=== PATIENT | male | born 1955 | race Caucasian/White ===

== ENCOUNTER 2017-09-13 11:52 | Inpatient (IN) | payer OTHER ==
[2017-09-13] MEDS: IBUPROFEN 600 MG TAB PO (13:43)
[2017-09-13] MEDS: CEFEPIME 1GM/50 ML (PMX) 50 ML IVPB ×2 (13:44→21:55)
[2017-09-13 14:04] LABS: ADD MAN DIFF? NO
[2017-09-13] MEDS: ALBUTEROL 0.083% (NEB) 2.5 MG/3 ML AMP HHN ×2 (14:06→14:28)
[2017-09-13 14:07] LABS: WHITE BLOOD COUNT 6.9 10^3/ul (4.8-10.8)
[2017-09-13 14:07] LABS: BASOPHILS % 0.4 % (0.0-2.0); EOSINOPHILS # 0.1 10^3/ul (0.0-0.5); HEMATOCRIT 42.9 % (42.0-52.0); HEMOGLOBIN 13.7 g/dl (14.0-18.0); LYMPHOCYTES # 1.1 10^3/ul (0.8-2.9); MEAN CORPUSCULAR HGB CONC 31.9 g/dl (32.0-37.0); MEAN CORPUSCULAR VOLUME 87.6 fl (82.0-101.0); MEAN PLATELET VOLUME 9.8 fl (7.4-10.4); MONOCYTE # 0.7 10^3/ul (0.3-0.9); MONOCYTES % 9.5 % (0.0-11.0); NEUTROPHILS % 71.8 % (39.0-77.0); PLATELET COUNT 267 10^3/UL (140-415); RED CELL DISTRIBUTION WIDTH 14.1 % (11.5-14.5)
[2017-09-13] MEDS: VANCOMYCIN 1 GM (PMX) 250 ML IVPB (14:15)
[2017-09-13] MEDS: SOD CHLORIDE 0.45% 1,000 ML IV (14:16)
[2017-09-13] MEDS ORDERED: ACETAMINOPHEN 325 MG TAB PO (14:30)
[2017-09-13] MEDS ORDERED: NACL 0.9% 3 ML SYG IV (14:30)
[2017-09-13] MEDS ORDERED: ONDANSETRON 4 MG INJ IV (14:30)
[2017-09-13] MEDS ORDERED: BISACODYL (EC) 5 MG TAB PO (14:30)
[2017-09-13] MEDS ORDERED: VANCOMYCIN IV PER PHARMACY XX (14:30)
[2017-09-13] MEDS ORDERED: LORAZEPAM 0.5 MG TAB PO (14:30)
[2017-09-13 14:31] LABS: INR 1.04; PROTIME 13.7 Sec (11.9-14.9); PT RATIO 1.1
[2017-09-13 14:32] LABS: PARTIAL THROMBOPLASTIN TIME 37.2 Sec (25.0-35.0)
[2017-09-13 14:34] LABS: LACTIC ACID 2.4 mmol/L (0.5-2.0)
[2017-09-13 14:35] LABS: ALANINE AMINOTRANSFERASE 33 IU/L (13-69); ALBUMIN 3.4 g/dl (3.3-4.9); ALBUMIN/GLOBULIN RATIO 1.06; ALKALINE PHOSPHATASE 71 IU/L (42-121); ANION GAP 17 (8-16); ASPARTATE AMINO TRANSFERASE 24 IU/L (15-46); BILIRUBIN,INDIRECT 0.2 mg/dl (0-1.1); BILIRUBIN,TOTAL 0.2 mg/dl (0.2-1.3); BLOOD UREA NITROGEN 5 mg/dl (7-20); CALCIUM 8.6 mg/dl (8.4-10.2); CARBON DIOXIDE 28 mmol/L (21-31); CHLORIDE 99 mmol/L (97-110); CREATININE 0.77 mg/dl (0.61-1.24); GLUCOSE 150 mg/dl (70-220); LIPASE 85 U/L (23-300); POTASSIUM 3.6 mmol/L (3.5-5.1); SODIUM 140 mmol/L (135-144); TOTAL PROTEIN 6.6 g/dl (6.1-8.1)
[2017-09-13 14:47] LABS: TROPONIN-I < 0.012 ng/ml (0.00-0.12)
[2017-09-13] MEDS: SOD CHLORIDE 0.9% 1,000 ML IV ×2 (15:00→15:28)
[2017-09-13] MEDS: IOHEXOL 100 ML (15:22)
[2017-09-13] MEDS: SOD CHLORIDE 0.9% 100 ML (15:23)
[2017-09-13] MEDS: DIGOXIN 500 MCG INJ IV (15:27)
[2017-09-13] MEDS: METHYLPREDNISOLONE 125 MG INJ IV ×2 (15:27→18:00)
[2017-09-13 15:44] LABS: HAAIG REFLEX REFLEX FILED
[2017-09-13] MEDS ORDERED: HEPARIN 25000 UNITS/250 ML 250 ML IV (16:00)
[2017-09-13] MEDS ORDERED: HEPARIN 1000 UNITS/ML 10 ML INJ IV ×3 (16:00)
[2017-09-13 16:48] LABS: HEPATITIS B SURFACE ANTIGEN NEGATIVE (NEGATIVE)
[2017-09-13 16:56] LABS: LACTIC ACID 2.2 mmol/L (0.5-2.0)
[2017-09-13] MEDS: DILTIAZEM 25 MG INJ IV (17:05)
[2017-09-13 17:06] LABS: HEPATITIS B CORE ANTIBODY NEGATIVE (NEGATIVE); HEPATITIS C VIRAL ANTIBODY NEGATIVE (NEGATIVE)
[2017-09-13 17:11] LABS: HIV 1&2 ANTIBODY NEGATIVE (NEGATIVE)
[2017-09-13 17:37] LABS: B-TYPE NATRIURETIC PEPTIDE 2010 PG/ML (0-125)
[2017-09-13] MEDS ORDERED: LIDOCAINE 1% (MDV) 20 ML INJ (17:47)
[2017-09-13] MEDS ORDERED: IODIXANOL LOCM 100 ML BTL (17:47)
[2017-09-13] MEDS ORDERED: SOD CHLORIDE 0.9% 500 ML (17:47)
[2017-09-13] MEDS ORDERED: PIPER-TAZO 3.375 GM IV (PMX) 50 ML IVPB (18:00)
[2017-09-13 18:03] LABS: LACTIC ACID 2.9 mmol/L (0.5-2.0)
[2017-09-13] MEDS ORDERED: MIDAZOLAM 1 MG/ML 2 ML INJ ×2 (18:27→18:28)
[2017-09-13] MEDS ORDERED: PROPOFOL 20 ML (18:28)
[2017-09-13] MEDS ORDERED: FENTAnyl 50 MCG/ML VIAL (18:28)
[2017-09-13] MEDS ORDERED: METOPROLOL 5 MG INJ (18:37)
[2017-09-13] MEDS ORDERED: WATER STERILE FOR IV (18:40)
[2017-09-13] MEDS ORDERED: ALTEPLASE IV (18:40)
[2017-09-13] MEDS ORDERED: ONDANSETRON 4 MG INJ (19:36)
[2017-09-13] MEDS: ALTEPLASE IV (20:00)
[2017-09-13] MEDS: WATER STERILE FOR IV (20:00)
[2017-09-13] MEDS: MONTELUKAST 10 MG TAB PO (21:00)
[2017-09-13] MEDS: QUETIAPINE 25 MG TAB PO (21:00)
[2017-09-13] MEDS: metroNIDAZOLE 500 MG/NS (PMX) 100 ML IVPB (21:55)
[2017-09-13] MEDS: FUROSEMIDE 20 MG TAB PO (21:56)
[2017-09-14 00:10] LABS: AADO2 Arterial 69.9 mmHg (7.0-24.0); Allen Test ACCEPTAB; Arterial Base Excess -0.3 mmol/L (-3.0-3); Arterial COHb 0.4 % (0.0-3.0); Arterial Fraction of Oxyhgb 92.4 % (93.0-99.0); Arterial HCO3 29.9 mmol/L (22.0-26.0); Arterial MetHb 0.2 % (0.0-1.5); Arterial Total Hemglobin 14.7 g/dl (12.0-18.0); Arterial pCO2 76.6 mmhg (35-45); MODE NASAL CANNULA; Site Right Radial
[2017-09-14] MEDS: METHYLPREDNISOLONE 125 MG INJ IV ×4 (01:20→18:00)
[2017-09-14] MEDS: SOD CHLORIDE 0.45% 1,000 ML IV ×2 (01:58→18:52)
[2017-09-14] MEDS: VANCOMYCIN 1.75 GM in NS 500 ML IVPB ×2 (01:58→12:46)
[2017-09-14] MEDS: metroNIDAZOLE 500 MG/NS (PMX) 100 ML IVPB ×3 (05:27→21:48)
[2017-09-14] MEDS: FUROSEMIDE 20 MG TAB PO ×2 (05:27→18:00)
[2017-09-14 05:28] LABS: Allen Test ACCEPTAB; Arterial Base Excess 1.8 mmol/L (-3.0-3); Arterial Blood Gas Oxygen Sat 94.4 mmHG (95.0-98.0); Arterial COHb 0.4 % (0.0-3.0); Arterial Fraction of Oxyhgb 93.7 % (93.0-99.0); Arterial HCO3 29.6 mmol/L (22.0-26.0); Arterial MetHb 0.3 % (0.0-1.5); Arterial Total Hemglobin 14.7 g/dl (12.0-18.0); Arterial pCO2 59.7 mmhg (35-45); Blood Gas PS 15/5; MODE BIPAP - S/T; Site Right Radial
[2017-09-14 06:32] LABS: ADD MAN DIFF? NO
[2017-09-14 06:39] LABS: HEMATOCRIT 42.7 % (42.0-52.0); HEMOGLOBIN 13.3 g/dl (14.0-18.0); LYMPHOCYTES # 0.6 10^3/ul (0.8-2.9); LYMPHOCYTES % 10.4 % (15.0-51.0); MEAN CORPUSCULAR HEMOGLOBIN 28.2 pg (29.0-33.0); MEAN CORPUSCULAR HGB CONC 31.1 g/dl (32.0-37.0); MEAN CORPUSCULAR VOLUME 90.5 fl (82.0-101.0); MEAN PLATELET VOLUME 9.4 fl (7.4-10.4); MONOCYTE # 0.2 10^3/ul (0.3-0.9); MONOCYTES % 3.7 % (0.0-11.0); NEUTROPHIL # 5.1 10^3/ul (1.6-7.5); NEUTROPHILS % 85.7 % (39.0-77.0); PLATELET COUNT 223 10^3/UL (140-415); RED BLOOD COUNT 4.72 10^6/ul (4.70-6.10); RED CELL DISTRIBUTION WIDTH 14.1 % (11.5-14.5)
[2017-09-14 07:14] LABS: ALANINE AMINOTRANSFERASE 39 IU/L (13-69); ALBUMIN 3.2 g/dl (3.3-4.9); ALBUMIN/GLOBULIN RATIO 0.88; ALKALINE PHOSPHATASE 70 IU/L (42-121); ANION GAP 16 (8-16); ASPARTATE AMINO TRANSFERASE 23 IU/L (15-46); BLOOD UREA NITROGEN 9 mg/dl (7-20); CALCIUM 9.2 mg/dl (8.4-10.2); CARBON DIOXIDE 29 mmol/L (21-31); CHLORIDE 101 mmol/L (97-110); CHOL/HDL RATIO 3.8 RATIO; CHOLESTEROL 137 mg/dl (100-200); CREATININE 0.66 mg/dl (0.61-1.24); GLUCOSE 189 mg/dl (70-220); HDL CHOLESTEROL 36 mg/dl (30-78); LDL CHOLESTEROL,CALCULATED 85 mg/dl; MAGNESIUM 1.9 mg/dl (1.7-2.5); POTASSIUM 4.4 mmol/L (3.5-5.1); SODIUM 142 mmol/L (135-144); TOTAL PROTEIN 6.8 g/dl (6.1-8.1); TRIGLYCERIDES 79 mg/dl (0-149)
[2017-09-14] MEDS: ALTEPLASE IV ×2 (08:54→10:15)
[2017-09-14] MEDS: WATER STERILE FOR IV ×2 (08:54→10:15)
[2017-09-14] MEDS: CEFEPIME 1GM/50 ML (PMX) 50 ML IVPB ×2 (08:57→20:58)
[2017-09-14] MEDS ORDERED: IODIXANOL LOCM 100 ML BTL (14:50)
[2017-09-14] MEDS ORDERED: HEPARIN 1000 UNITS/NS (A-LINE) 1,000 ML (14:50)
[2017-09-14] MEDS ORDERED: LIDOCAINE 1% (MDV) 20 ML INJ (14:50)
[2017-09-14] MEDS ORDERED: MIDAZOLAM 1 MG/ML 2 ML INJ (15:14)
[2017-09-14] MEDS ORDERED: PROPOFOL 40 ML (15:25)
[2017-09-14] MEDS ORDERED: LIDOCAINE 2% (SDV) 5 ML INJ (15:25)
[2017-09-14] MEDS ORDERED: HEPARIN 1000 UNITS/ML 10 ML INJ (16:24)
[2017-09-14] MEDS ORDERED: HEPARIN 1000 UNITS/ML 10 ML INJ IV ×4 (17:00→17:30)
[2017-09-14] MEDS ORDERED: HEPARIN 25000 UNITS/250 ML 250 ML IV (17:30)
[2017-09-14] MEDS: HEPARIN 25000 UNITS/250 ML 250 ML IV (17:59)
[2017-09-14 18:35] LABS: ABNORMAL IP MESSAGE 1; HEMATOCRIT 43.9 % (42.0-52.0); HEMOGLOBIN 13.2 g/dl (14.0-18.0); MEAN CORPUSCULAR HEMOGLOBIN 27.7 pg (29.0-33.0); MEAN CORPUSCULAR HGB CONC 30.1 g/dl (32.0-37.0); MEAN PLATELET VOLUME 9.7 fl (7.4-10.4); PLATELET COUNT 218 10^3/UL (140-415); POSITIVE DIFF @See below; RED BLOOD COUNT 4.77 10^6/ul (4.70-6.10); RED CELL DISTRIBUTION WIDTH 13.9 % (11.5-14.5)
[2017-09-14 18:35] LABS: WHITE BLOOD COUNT 9.6 10^3/ul (4.8-10.8)
[2017-09-14 18:38] LABS: ADD MAN DIFF? YES
[2017-09-14 19:19] LABS: BAND NEUTROPHILS #M 0.2 10^3/ul (0.0-0.6); BAND NEUTROPHILS % (M) 3 % (0-4); GIANT THROMBO% (M) 1 % (0-0); LYMPHOCYTES #M 0.1 10^3/ul (0.8-2.9); LYMPHOCYTES % (M) 2 % (15-51); MONOCYTE #M 0.1 10^3/ul (0.3-0.9); MONOCYTES % (M) 2 % (0-11); PLATELET ESTIMATE NORMAL; SEG NEUT #M 8.9 10^3/ul (1.7-7.5); SEGMENTED NEUTROPHILS (M) % 93 % (39-77); SMUDGE%M 3 % (0-0)
[2017-09-14] MEDS: MONTELUKAST 10 MG TAB PO ×2 (20:59→21:16)
[2017-09-14] MEDS: QUETIAPINE 25 MG TAB PO (21:00)
[2017-09-14] MEDS: morphine 2 MG INJ IV (22:26)
[2017-09-14] MEDS: FUROSEMIDE 20 MG INJ IV (23:37)
[2017-09-15] MEDS: METHYLPREDNISOLONE 125 MG INJ IV ×5 (00:49→23:39)
[2017-09-15] MEDS ORDERED: LEVALBUTEROL (NEB) 0.63 MG/3 ML AMP (01:07)
[2017-09-15] MEDS ORDERED: IPRATROPIUM (NEB) 0.5 MG/2.5 ML AMP (01:07)
[2017-09-15] MEDS: IPRATROPIUM (NEB) 0.5 MG/2.5 ML AMP HHN ×5 (01:21→16:00)
[2017-09-15] MEDS: LEVALBUTEROL (NEB) 0.63 MG/3 ML AMP HHN ×5 (01:21→16:00)
[2017-09-15] MEDS: AMIODARONE 150MG/D5W BOLUS 100 ML IVPB (01:29)
[2017-09-15] MEDS: VANCOMYCIN 1.75 GM in NS 500 ML IVPB ×3 (01:30→21:30)
[2017-09-15] MEDS: AMIODARONE 900 MG in DEXTROSE 5% 482 ML IV ×2 (01:33→08:59)
[2017-09-15] MEDS: HYDROCODONE/APAP (5/325) TAB PO (02:32)
[2017-09-15 03:53] LABS: PARTIAL THROMBOPLASTIN TIME 73.3 Sec (25.0-35.0)
[2017-09-15] MEDS: metroNIDAZOLE 500 MG/NS (PMX) 100 ML IVPB ×3 (06:00→22:54)
[2017-09-15 06:04] LABS: ADD MAN DIFF? NO
[2017-09-15 06:13] LABS: WHITE BLOOD COUNT 11.2 10^3/ul (4.8-10.8)
[2017-09-15 06:13] LABS: ABNORMAL IP MESSAGE 1; BASOPHILS % 0.1 % (0.0-2.0); HEMATOCRIT 40.6 % (42.0-52.0); HEMOGLOBIN 12.9 g/dl (14.0-18.0); LYMPHOCYTES # 0.5 10^3/ul (0.8-2.9); LYMPHOCYTES % 4.6 % (15.0-51.0); MEAN CORPUSCULAR HEMOGLOBIN 28.6 pg (29.0-33.0); MEAN CORPUSCULAR HGB CONC 31.8 g/dl (32.0-37.0); MEAN PLATELET VOLUME 10.2 fl (7.4-10.4); MONOCYTE # 0.6 10^3/ul (0.3-0.9); MONOCYTES % 4.9 % (0.0-11.0); PLATELET COUNT 218 10^3/UL (140-415); POSITIVE DIFF @See below; RED BLOOD COUNT 4.51 10^6/ul (4.70-6.10); RED CELL DISTRIBUTION WIDTH 14.1 % (11.5-14.5)
[2017-09-15] MEDS: FUROSEMIDE 40 MG INJ IV ×2 (06:26→18:01)
[2017-09-15] MEDS: HEPARIN 25000 UNITS/250 ML 250 ML IV ×2 (06:29→17:23)
[2017-09-15 06:33] LABS: LACTIC ACID 1.6 mmol/L (0.5-2.0)
[2017-09-15 07:25] LABS: ANION GAP 14 (8-16); BLOOD UREA NITROGEN 10 mg/dl (7-20); CALCIUM 8.4 mg/dl (8.4-10.2); CARBON DIOXIDE 27 mmol/L (21-31); CHLORIDE 98 mmol/L (97-110); CREATININE 0.73 mg/dl (0.61-1.24); GLUCOSE 316 mg/dl (70-220); MAGNESIUM 1.6 mg/dl (1.7-2.5); PHOSPHORUS 3.4 mg/dl (2.5-4.9); POTASSIUM 4.5 mmol/L (3.5-5.1); SODIUM 134 mmol/L (135-144)
[2017-09-15] MEDS: CEFEPIME 1GM/50 ML (PMX) 50 ML IVPB ×2 (09:00→21:01)
[2017-09-15] MEDS: DIGOXIN 500 MCG INJ IV (09:03)
[2017-09-15] MEDS: DILTIAZEM 60 MG TAB PO ×3 (09:03→21:01)
[2017-09-15 09:07] LABS: BAND NEUTROPHILS #M 2.6 10^3/ul (0.0-0.6); BAND NEUTROPHILS % (M) 24 % (0-4); LYMPHOCYTES #M 0.4 10^3/ul (0.8-2.9); LYMPHOCYTES % (M) 4 % (15-51); MONOCYTE #M 0.3 10^3/ul (0.3-0.9); MONOCYTES % (M) 3 % (0-11); PLATELET ESTIMATE NORMAL; POLYCHROMASIA 1+ (0-0); SEGMENTED NEUTROPHILS (M) % 69 % (39-77); SMUDGE%M 8 % (0-0)
[2017-09-15] MEDS ORDERED: MAGNESIUM SULFATE 2 GM/50 ML 50 ML IVPB (09:30)
[2017-09-15] MEDS: LIDOCAINE 1% (MPF) 5 ML VIAL SC (10:30)
[2017-09-15] MEDS: MAGNESIUM OXIDE 400 MG TAB PO (11:48)
[2017-09-15] MEDS: morphine 2 MG INJ IV (12:32)
[2017-09-15 14:19] LABS: PARTIAL THROMBOPLASTIN TIME 70.6 Sec (25.0-35.0)
[2017-09-15 15:36] LABS: VANCOMYCIN,TROUGH 5.3 ug/ml (10.0-20.0)
[2017-09-15] MEDS: OXYCODONE/ACETAMINOPHEN (5/325) TAB PO ×2 (16:37)
[2017-09-15] MEDS: QUETIAPINE 25 MG TAB PO ×2 (21:02→21:04)
[2017-09-16] MEDS: morphine 2 MG INJ IV ×5 (00:05→20:11)
[2017-09-16] MEDS ORDERED: GLUCOSE GEL 15 GRAM TUBE PO ×2 (02:30)
[2017-09-16] MEDS ORDERED: GLUCOSE GEL 15 GRAM TUBE BUCCAL (02:30)
[2017-09-16] MEDS ORDERED: DEXTROSE 50% 50 ML SYRINGE IV ×2 (02:30)
[2017-09-16] MEDS ORDERED: GLUCAGON 1 MG INJ IM (02:30)
[2017-09-16] MEDS: VANCOMYCIN 1.75 GM in NS 500 ML IVPB ×3 (04:38→21:47)
[2017-09-16] MEDS: HEPARIN 25000 UNITS/250 ML 250 ML IV ×2 (04:50→19:10)
[2017-09-16 05:17] LABS: ADD MAN DIFF? NO
[2017-09-16 05:25] LABS: ABNORMAL IP MESSAGE 1; BASOPHILS % 0.1 % (0.0-2.0); HEMATOCRIT 40.7 % (42.0-52.0); HEMOGLOBIN 12.8 g/dl (14.0-18.0); LYMPHOCYTES # 0.5 10^3/ul (0.8-2.9); LYMPHOCYTES % 5.2 % (15.0-51.0); MEAN CORPUSCULAR HEMOGLOBIN 28.2 pg (29.0-33.0); MEAN CORPUSCULAR HGB CONC 31.4 g/dl (32.0-37.0); MEAN CORPUSCULAR VOLUME 89.6 fl (82.0-101.0); MEAN PLATELET VOLUME 9.6 fl (7.4-10.4); MONOCYTE # 0.3 10^3/ul (0.3-0.9); MONOCYTES % 3.1 % (0.0-11.0); NEUTROPHILS % 91.1 % (39.0-77.0); PLATELET COUNT 244 10^3/UL (140-415); POSITIVE DIFF @See below; RED BLOOD COUNT 4.54 10^6/ul (4.70-6.10); RED CELL DISTRIBUTION WIDTH 14.3 % (11.5-14.5)
[2017-09-16 05:25] LABS: WHITE BLOOD COUNT 9.9 10^3/ul (4.8-10.8)
[2017-09-16] MEDS: METHYLPREDNISOLONE 125 MG INJ IV ×4 (05:45→23:12)
[2017-09-16] MEDS: FUROSEMIDE 40 MG INJ IV ×2 (05:45→17:39)
[2017-09-16] MEDS: metroNIDAZOLE 500 MG/NS (PMX) 100 ML IVPB ×3 (05:45→21:10)
[2017-09-16] MEDS: INSULIN ASPART [NOVOLOG] 3 ML PEN SC ×4 (05:51→20:29)
[2017-09-16 06:14] LABS: B-TYPE NATRIURETIC PEPTIDE 963 PG/ML (0-125)
[2017-09-16 06:17] LABS: ALANINE AMINOTRANSFERASE 38 IU/L (13-69); ALBUMIN 3.3 g/dl (3.3-4.9); ALKALINE PHOSPHATASE 72 IU/L (42-121); ANION GAP 16 (8-16); ASPARTATE AMINO TRANSFERASE 18 IU/L (15-46); BLOOD UREA NITROGEN 16 mg/dl (7-20); CALCIUM 8.8 mg/dl (8.4-10.2); CARBON DIOXIDE 30 mmol/L (21-31); CHLORIDE 99 mmol/L (97-110); CREATININE 0.66 mg/dl (0.61-1.24); GLUCOSE 186 mg/dl (70-220); MAGNESIUM 2.1 mg/dl (1.7-2.5); POTASSIUM 4.5 mmol/L (3.5-5.1); SODIUM 140 mmol/L (135-144); TOTAL PROTEIN 6.3 g/dl (6.1-8.1)
[2017-09-16 06:21] LABS: ANION GAP 15 (8-16); BLOOD UREA NITROGEN 16 mg/dl (7-20); CALCIUM 8.9 mg/dl (8.4-10.2); CARBON DIOXIDE 32 mmol/L (21-31); CHLORIDE 98 mmol/L (97-110); CREATININE 0.67 mg/dl (0.61-1.24); GLUCOSE 185 mg/dl (70-220); PHOSPHORUS 3.9 mg/dl (2.5-4.9); POTASSIUM 4.5 mmol/L (3.5-5.1); SODIUM 140 mmol/L (135-144)
[2017-09-16 06:26] LABS: PARTIAL THROMBOPLASTIN TIME 75.9 Sec (25.0-35.0)
[2017-09-16] MEDS: DILTIAZEM 60 MG TAB PO ×3 (09:36→20:13)
[2017-09-16] MEDS: CEFEPIME 1GM/50 ML (PMX) 50 ML IVPB ×2 (09:37→20:11)
[2017-09-16] MEDS: DIGOXIN 0.125 MG TAB PO (12:11)
[2017-09-16] MEDS: IPRATROPIUM (NEB) 0.5 MG/2.5 ML AMP HHN ×2 (12:38→18:27)
[2017-09-16] MEDS: LEVALBUTEROL (NEB) 0.63 MG/3 ML AMP HHN ×3 (12:38→23:41)
[2017-09-16] MEDS ORDERED: LORAZEPAM 1 MG TAB PO (14:30)
[2017-09-16 15:01] LABS: FREE T4 (FREE THYROXINE) 1.15 ng/dl (0.78-2.44)
[2017-09-16 15:15] LABS: THYROID STIMULATING HORMONE 0.358 MIU/L (0.465-4.680)
[2017-09-16] MEDS: QUETIAPINE 25 MG TAB PO (20:12)
[2017-09-16] MEDS: MONTELUKAST 10 MG TAB PO (20:13)
[2017-09-16] MEDS ORDERED: ENOXAPARIN 100 MG/ML SYG SC (21:00)
[2017-09-17] MEDS ORDERED: ACCU-CHEK XX (02:00)
[2017-09-17] MEDS: metroNIDAZOLE 500 MG/NS (PMX) 100 ML IVPB ×3 (05:00→21:32)
[2017-09-17] MEDS: METHYLPREDNISOLONE 125 MG INJ IV (05:40)
[2017-09-17] MEDS: VANCOMYCIN 1.75 GM in NS 500 ML IVPB (05:40)
[2017-09-17] MEDS: FUROSEMIDE 40 MG INJ IV ×2 (05:46→17:23)
[2017-09-17] MEDS: morphine 2 MG INJ IV ×2 (06:02→20:57)
[2017-09-17 06:31] LABS: ADD MAN DIFF? NO
[2017-09-17 06:38] LABS: WHITE BLOOD COUNT 9.7 10^3/ul (4.8-10.8)
[2017-09-17 06:38] LABS: ABNORMAL IP MESSAGE 1; BASOPHILS % 0.2 % (0.0-2.0); HEMOGLOBIN 13.4 g/dl (14.0-18.0); LYMPHOCYTES # 0.6 10^3/ul (0.8-2.9); LYMPHOCYTES % 5.7 % (15.0-51.0); MEAN CORPUSCULAR HEMOGLOBIN 27.7 pg (29.0-33.0); MEAN CORPUSCULAR HGB CONC 31.2 g/dl (32.0-37.0); MEAN PLATELET VOLUME 9.2 fl (7.4-10.4); MONOCYTE # 0.3 10^3/ul (0.3-0.9); MONOCYTES % 3.5 % (0.0-11.0); NEUTROPHIL # 8.7 10^3/ul (1.6-7.5); NEUTROPHILS % 89.4 % (39.0-77.0); PLATELET COUNT 274 10^3/UL (140-415); POSITIVE DIFF @See below; RED BLOOD COUNT 4.83 10^6/ul (4.70-6.10); RED CELL DISTRIBUTION WIDTH 13.7 % (11.5-14.5)
[2017-09-17 07:05] LABS: PARTIAL THROMBOPLASTIN TIME 62.6 Sec (25.0-35.0)
[2017-09-17 07:05] LABS: ANION GAP 14 (8-16); BLOOD UREA NITROGEN 23 mg/dl (7-20); CARBON DIOXIDE 35 mmol/L (21-31); CHLORIDE 94 mmol/L (97-110); CREATININE 0.73 mg/dl (0.61-1.24); GLUCOSE 216 mg/dl (70-220); PHOSPHORUS 3.6 mg/dl (2.5-4.9); POTASSIUM 4.2 mmol/L (3.5-5.1); SODIUM 139 mmol/L (135-144)
[2017-09-17] MEDS: INSULIN ASPART [NOVOLOG] 3 ML PEN SC ×5 (08:29→21:30)
[2017-09-17] MEDS: HEPARIN 25000 UNITS/250 ML 250 ML IV ×2 (08:39→19:29)
[2017-09-17] MEDS: DILTIAZEM 60 MG TAB PO ×2 (09:13→12:18)
[2017-09-17] MEDS: CEFEPIME 1GM/50 ML (PMX) 50 ML IVPB ×2 (10:17→22:56)
[2017-09-17] MEDS: DIGOXIN 0.125 MG TAB PO (12:18)
[2017-09-17 13:18] LABS: VANCOMYCIN,TROUGH 22.7 ug/ml (10.0-20.0)
[2017-09-17 15:16] LABS: PARTIAL THROMBOPLASTIN TIME 78.4 Sec (25.0-35.0)
[2017-09-17] MEDS: LEVALBUTEROL (NEB) 0.63 MG/3 ML AMP HHN ×2 (16:45→23:52)
[2017-09-17] MEDS: IPRATROPIUM (NEB) 0.5 MG/2.5 ML AMP HHN (16:45)
[2017-09-17] MEDS: MONTELUKAST 10 MG TAB PO (20:42)
[2017-09-17] MEDS: DILTIAZEM (CD) 120 MG CAP PO (20:42)
[2017-09-17] MEDS: QUETIAPINE 25 MG TAB PO (20:50)
[2017-09-17] MEDS: VANCOMYCIN 1 GM (PMX) 250 ML IVPB (21:31)
[2017-09-18 00:02] LABS: PARTIAL THROMBOPLASTIN TIME 126.6 Sec (25.0-35.0)
[2017-09-18] MEDS: HEPARIN 25000 UNITS/250 ML 250 ML IV ×2 (00:53→09:20)
[2017-09-18] MEDS: metroNIDAZOLE 500 MG/NS (PMX) 100 ML IVPB (05:21)
[2017-09-18] MEDS: FUROSEMIDE 40 MG INJ IV (05:22)
[2017-09-18] MEDS: morphine 2 MG INJ IV (05:27)
[2017-09-18 06:54] LABS: ADD MAN DIFF? NO
[2017-09-18 07:02] LABS: WHITE BLOOD COUNT 11.4 10^3/ul (4.8-10.8)
[2017-09-18 07:02] LABS: BASOPHIL # 0.1 10^3/ul (0.0-0.1); BASOPHILS % 0.4 % (0.0-2.0); HEMATOCRIT 44.6 % (42.0-52.0); LYMPHOCYTES # 0.7 10^3/ul (0.8-2.9); LYMPHOCYTES % 6.4 % (15.0-51.0); MEAN CORPUSCULAR HEMOGLOBIN 27.8 pg (29.0-33.0); MEAN CORPUSCULAR HGB CONC 31.4 g/dl (32.0-37.0); MEAN CORPUSCULAR VOLUME 88.7 fl (82.0-101.0); MEAN PLATELET VOLUME 9.9 fl (7.4-10.4); MONOCYTE # 0.7 10^3/ul (0.3-0.9); MONOCYTES % 5.9 % (0.0-11.0); NEUTROPHIL # 9.5 10^3/ul (1.6-7.5); NEUTROPHILS % 83.4 % (39.0-77.0); PLATELET COUNT 274 10^3/UL (140-415); RED BLOOD COUNT 5.03 10^6/ul (4.70-6.10); RED CELL DISTRIBUTION WIDTH 13.5 % (11.5-14.5)
[2017-09-18 07:22] LABS: PARTIAL THROMBOPLASTIN TIME 45.1 Sec (25.0-35.0)
[2017-09-18 07:36] LABS: ANION GAP 13 (8-16); BLOOD UREA NITROGEN 25 mg/dl (7-20); CALCIUM 8.6 mg/dl (8.4-10.2); CARBON DIOXIDE 36 mmol/L (21-31); CHLORIDE 94 mmol/L (97-110); CREATININE 0.71 mg/dl (0.61-1.24); GLUCOSE 184 mg/dl (70-220); PHOSPHORUS 3.5 mg/dl (2.5-4.9); POTASSIUM 4.3 mmol/L (3.5-5.1); SODIUM 139 mmol/L (135-144)
[2017-09-18] MEDS: INSULIN ASPART [NOVOLOG] 3 ML PEN SC (07:48)
[2017-09-18] MEDS: CEFEPIME 1GM/50 ML (PMX) 50 ML IVPB (09:16)
[2017-09-18] MEDS: DILTIAZEM (CD) 120 MG CAP PO (09:17)
[2017-09-18] MEDS: HEPARIN 1000 UNITS/ML 10 ML INJ IV (09:18)
[2017-09-18] MEDS: predniSONE 20 MG TAB PO (09:43)
[2017-09-18] MEDS: VANCOMYCIN 1 GM (PMX) 250 ML IVPB (10:00)
[2017-09-18] MEDS: APIXABAN 5 MG TABLET PO (11:16)
[2017-09-18] MEDS ORDERED: INSULIN GLARGINE [LANtus] 3 ML PEN SC (20:00)
== END 2017-09-18 11:19 | disposition left against medical advice (07) | DRG 853 ==
LOC: E/R 11:52 → ICU 18:01 → TEL 09-16 16:23 → ICU 20:32 → E/R 16:05 → ICU 16:05
PROVIDERS: Internal Medicine
PROC: 02CQ3ZZ Extirpation of Matter from Right Pulmonary Artery, Percutaneous Approach (ICD-10-PCS; principal; 2017-09-13 18:08)
PROC: 3E06317 Introduction of Other Thrombolytic into Central Artery, Percutaneous Approach (ICD-10-PCS; 2017-09-13 18:08)
DX: A41.9 Sepsis, unspecified organism (principal); J18.9 Pneumonia, unspecified organism; I26.99 Other pulmonary embolism without acute cor pulmonale; J96.91 Respiratory failure, unspecified with hypoxia; I74.2 Embolism and thrombosis of arteries of the upper extremities; I48.91 Unspecified atrial fibrillation; J44.1 Chronic obstructive pulmonary disease with (acute) exacerbation; Z68.43 Body mass index [BMI] 50.0-59.9, adult; J44.0 Chronic obstructive pulmonary disease with (acute) lower respiratory infection; R04.2 Hemoptysis; Z59.0 Homelessness; E66.01 Morbid (severe) obesity due to excess calories; Z72.0 Tobacco use
CPT/HCPCS: 36415; 36600; 37211; 71045; 71275; 80048; 80053; 80061; 80202; 81240; 82803; 82962; 83090; 83605; 83690; 83735; 83880; 83890; 84100; 84439; 84443; 84484; 85025; 85240; 85300; 85302; 85305; 85384; 85610; 85613; 85730; 86147; 86703; 86704; 86709; 86803; 87040; 87081; 87086; 87340; 87400; 93005; 93306; 93970; 94640; 94660; 94664; 96374; 96375; 97166; 97535; 99291-25

== ENCOUNTER 2017-10-24 14:04 | Inpatient (IN) | payer OTHER ==
[2017-10-24 14:59] LABS: ADD MAN DIFF? NO
[2017-10-24] MEDS: FUROSEMIDE 40 MG INJ IV (15:00)
[2017-10-24] MEDS: DILTIAZEM 25 MG INJ IV (15:01)
[2017-10-24] MEDS: ASPIRIN 81 MG TAB PO (15:01)
[2017-10-24 15:03] LABS: BASOPHILS % 0.4 % (0.0-2.0); EOSINOPHILS # 0.1 10^3/ul (0.0-0.5); EOSINOPHILS % 0.9 % (0.0-7.0); HEMATOCRIT 40.4 % (42.0-52.0); HEMOGLOBIN 12.2 g/dl (14.0-18.0); LYMPHOCYTES # 1.2 10^3/ul (0.8-2.9); LYMPHOCYTES % 15.3 % (15.0-51.0); MEAN CORPUSCULAR HEMOGLOBIN 27.7 pg (29.0-33.0); MEAN CORPUSCULAR HGB CONC 30.2 g/dl (32.0-37.0); MEAN CORPUSCULAR VOLUME 91.8 fl (82.0-101.0); MEAN PLATELET VOLUME 9.2 fl (7.4-10.4); MONOCYTE # 0.6 10^3/ul (0.3-0.9); MONOCYTES % 7.2 % (0.0-11.0); NEUTROPHILS % 75.8 % (39.0-77.0); PLATELET COUNT 287 10^3/UL (140-415); RED CELL DISTRIBUTION WIDTH 15.9 % (11.5-14.5)
[2017-10-24 15:03] LABS: WHITE BLOOD COUNT 7.9 10^3/ul (4.8-10.8)
[2017-10-24 15:18] LABS: INR 1.07; PT RATIO 1.1
[2017-10-24 15:19] LABS: PARTIAL THROMBOPLASTIN TIME 34.6 Sec (25.0-35.0)
[2017-10-24 15:21] LABS: ANION GAP 12 (8-16); BLOOD UREA NITROGEN 10 mg/dl (7-20); CARBON DIOXIDE 35 mmol/L (21-31); CHLORIDE 99 mmol/L (97-110); CREATININE 0.85 mg/dl (0.61-1.24); GLUCOSE 167 mg/dl (70-220); POTASSIUM 3.7 mmol/L (3.5-5.1); SODIUM 142 mmol/L (135-144)
[2017-10-24] MEDS: DILTIAZEM 30 MG TAB PO (15:29)
[2017-10-24 15:40] LABS: TROPONIN-I < 0.012 ng/ml (0.00-0.12)
[2017-10-24] MEDS ORDERED: ONDANSETRON 4 MG INJ IV (16:30)
[2017-10-24] MEDS ORDERED: ACETAMINOPHEN 325 MG TAB PO (16:30)
[2017-10-24] MEDS: NITROGLYCERIN 2% 1 GM OINT PKT TD (18:55)
[2017-10-24] MEDS ORDERED: NITROGLYCERIN (SL) 0.4 MG TAB SL (19:00)
[2017-10-24] MEDS: ALBUTEROL 0.083% (NEB) 2.5 MG/3 ML AMP HHN (19:13)
[2017-10-24] MEDS: IPRATROPIUM (NEB) 0.5 MG/2.5 ML AMP HHN (19:14)
[2017-10-24 19:21] LABS: AADO2 Arterial 260.1 mmHg (7.0-24.0); Allen Test ACCEPTAB; Arterial Blood Gas Oxygen Sat 97.1 mmHG (95.0-98.0); Arterial COHb 2.6 % (0.0-3.0); Arterial Fraction of Oxyhgb 94.3 % (93.0-99.0); Arterial HCO3 37.5 mmol/L (22.0-26.0); Arterial MetHb 0.3 % (0.0-1.5); Arterial Total Hemglobin 13.4 g/dl (12.0-18.0); Arterial pCO2 71.5 mmhg (35-45); MODE MASK - SIMPLE; Site Left Radial
[2017-10-24] MEDS ORDERED: NACL 0.9% 3 ML SYG IV (20:00)
[2017-10-24] MEDS ORDERED: BISACODYL (EC) 5 MG TAB PO (20:00)
[2017-10-24] MEDS ORDERED: ONDANSETRON 4 MG TAB PO (20:00)
[2017-10-24] MEDS ORDERED: DOCUSATE SODIUM 100 MG CAP PO (20:00)
[2017-10-24] MEDS: APIXABAN 5 MG TABLET PO (20:45)
[2017-10-24] MEDS: POTASSIUM CHLORIDE (SR) 20 MEQ TAB PO (20:46)
[2017-10-24] MEDS: morphine 2 MG INJ IV (20:55)
[2017-10-24 22:01] LABS: CREATINE KINASE < 20 IU/L (23-200)
[2017-10-24 22:08] LABS: CK-MB < 0.22 ng/ml (0.0-2.4); TROPONIN-I < 0.012 ng/ml (0.00-0.12)
[2017-10-25] MEDS ORDERED: ALBUTEROL/IPRATROPIUM (NEB) 3 ML AMP HHN
[2017-10-25] MEDS ORDERED: ALBUTEROL/IPRATROPIUM (NEB) 3 ML AMP (00:16)
[2017-10-25] MEDS: ALBUTEROL/IPRATROPIUM (NEB) 3 ML AMP HHN ×3 (01:07→09:30)
[2017-10-25] MEDS: morphine 2 MG INJ IV ×2 (01:40→19:57)
[2017-10-25] MEDS: DILTIAZEM 30 MG TAB PO ×4 (02:58→20:00)
[2017-10-25 07:21] LABS: ADD MAN DIFF? NO
[2017-10-25 07:33] LABS: BASOPHIL # 0.1 10^3/ul (0.0-0.1); BASOPHILS % 0.6 % (0.0-2.0); EOSINOPHILS # 0.1 10^3/ul (0.0-0.5); EOSINOPHILS % 1.1 % (0.0-7.0); HEMATOCRIT 39.7 % (42.0-52.0); HEMOGLOBIN 11.6 g/dl (14.0-18.0); LYMPHOCYTES # 1.5 10^3/ul (0.8-2.9); LYMPHOCYTES % 16.1 % (15.0-51.0); MEAN CORPUSCULAR HEMOGLOBIN 27.5 pg (29.0-33.0); MEAN CORPUSCULAR HGB CONC 29.2 g/dl (32.0-37.0); MEAN CORPUSCULAR VOLUME 94.1 fl (82.0-101.0); MEAN PLATELET VOLUME 9.5 fl (7.4-10.4); MONOCYTE # 0.7 10^3/ul (0.3-0.9); MONOCYTES % 7.5 % (0.0-11.0); NEUTROPHIL # 6.7 10^3/ul (1.6-7.5); NEUTROPHILS % 74.1 % (39.0-77.0); PLATELET COUNT 286 10^3/UL (140-415); RED BLOOD COUNT 4.22 10^6/ul (4.70-6.10); RED CELL DISTRIBUTION WIDTH 16.5 % (11.5-14.5)
[2017-10-25 07:52] LABS: CREATINE KINASE < 20 IU/L (23-200)
[2017-10-25 07:55] LABS: MAGNESIUM 1.9 mg/dl (1.7-2.5)
[2017-10-25 07:56] LABS: ALANINE AMINOTRANSFERASE 45 IU/L (13-69); ALBUMIN 3.4 g/dl (3.3-4.9); ALBUMIN/GLOBULIN RATIO 1.41; ALKALINE PHOSPHATASE 70 IU/L (42-121); ANION GAP 10 (8-16); ASPARTATE AMINO TRANSFERASE 32 IU/L (15-46); BILIRUBIN,INDIRECT 0.1 mg/dl (0-1.1); BILIRUBIN,TOTAL 0.1 mg/dl (0.2-1.3); BLOOD UREA NITROGEN 12 mg/dl (7-20); CALCIUM 8.9 mg/dl (8.4-10.2); CARBON DIOXIDE 38 mmol/L (21-31); CHLORIDE 98 mmol/L (97-110); CREATININE 0.85 mg/dl (0.61-1.24); GLUCOSE 130 mg/dl (70-220); POTASSIUM 4.5 mmol/L (3.5-5.1); SODIUM 141 mmol/L (135-144); TOTAL PROTEIN 5.8 g/dl (6.1-8.1)
[2017-10-25 08:02] LABS: TROPONIN-I 0.017 ng/ml (0.00-0.12)
[2017-10-25 08:04] LABS: CK-MB < 0.22 ng/ml (0.0-2.4)
[2017-10-25] MEDS: APIXABAN 5 MG TABLET PO ×2 (09:13→20:00)
[2017-10-25] MEDS: FUROSEMIDE 40 MG INJ IV (09:17)
[2017-10-25 09:32] LABS: B-TYPE NATRIURETIC PEPTIDE 1320 PG/ML (0-125)
[2017-10-25] MEDS: LEVALBUTEROL (NEB) 0.63 MG/3 ML AMP HHN ×4 (10:01→21:35)
[2017-10-25] MEDS: IPRATROPIUM (NEB) 0.5 MG/2.5 ML AMP HHN ×4 (10:23→21:35)
[2017-10-25] MEDS: SPIRONOLACTONE 25 MG TAB PO (18:18)
[2017-10-25] MEDS: DIGOXIN 500 MCG INJ IV (18:18)
[2017-10-25] MEDS: DOCUSATE SODIUM 100 MG CAP PO (20:00)
[2017-10-26] MEDS: morphine 2 MG INJ IV ×3 (00:32→20:51)
[2017-10-26] MEDS: ACETAMINOPHEN 325 MG TAB PO (05:11)
[2017-10-26 06:26] LABS: ADD MAN DIFF? NO
[2017-10-26 06:46] LABS: BASOPHILS % 0.4 % (0.0-2.0); EOSINOPHILS # 0.1 10^3/ul (0.0-0.5); HEMATOCRIT 41.2 % (42.0-52.0); LYMPHOCYTES # 1.6 10^3/ul (0.8-2.9); LYMPHOCYTES % 16.3 % (15.0-51.0); MEAN CORPUSCULAR HEMOGLOBIN 27.3 pg (29.0-33.0); MEAN CORPUSCULAR HGB CONC 29.1 g/dl (32.0-37.0); MEAN CORPUSCULAR VOLUME 93.8 fl (82.0-101.0); MEAN PLATELET VOLUME 9.6 fl (7.4-10.4); MONOCYTE # 0.7 10^3/ul (0.3-0.9); MONOCYTES % 7.6 % (0.0-11.0); NEUTROPHIL # 7.1 10^3/ul (1.6-7.5); NEUTROPHILS % 74.4 % (39.0-77.0); NUCLEATED RED BLOOD CELLS% 0.4 /100WBC (0.0-0.0); PLATELET COUNT 298 10^3/UL (140-415); RED BLOOD COUNT 4.39 10^6/ul (4.70-6.10); RED CELL DISTRIBUTION WIDTH 15.8 % (11.5-14.5)
[2017-10-26 06:46] LABS: WHITE BLOOD COUNT 9.6 10^3/ul (4.8-10.8)
[2017-10-26 07:06] LABS: HEMOGLOBIN A1C 6.6 % (0-5.9)
[2017-10-26 07:13] LABS: ALANINE AMINOTRANSFERASE 41 IU/L (13-69); ALBUMIN 3.7 g/dl (3.3-4.9); ALBUMIN/GLOBULIN RATIO 1.23; ALKALINE PHOSPHATASE 71 IU/L (42-121); ANION GAP 10 (8-16); ASPARTATE AMINO TRANSFERASE 29 IU/L (15-46); BILIRUBIN,INDIRECT 0.2 mg/dl (0-1.1); BILIRUBIN,TOTAL 0.2 mg/dl (0.2-1.3); BLOOD UREA NITROGEN 12 mg/dl (7-20); CALCIUM 9.3 mg/dl (8.4-10.2); CHLORIDE 91 mmol/L (97-110); CREATININE 0.81 mg/dl (0.61-1.24); GLUCOSE 169 mg/dl (70-220); POTASSIUM 3.9 mmol/L (3.5-5.1); SODIUM 137 mmol/L (135-144); TOTAL PROTEIN 6.7 g/dl (6.1-8.1)
[2017-10-26 07:14] LABS: DIGOXIN < 0.4 ng/ml (1.0-2.0)
[2017-10-26 07:17] LABS: B-TYPE NATRIURETIC PEPTIDE 1200 PG/ML (0-125)
[2017-10-26 07:19] LABS: CARBON DIOXIDE 40 mmol/L (21-31)
[2017-10-26 07:23] LABS: FREE T4 (FREE THYROXINE) 0.71 ng/dl (0.78-2.44)
[2017-10-26 07:39] LABS: MAGNESIUM 1.9 mg/dl (1.7-2.5)
[2017-10-26] MEDS: APIXABAN 5 MG TABLET PO ×2 (09:32→20:38)
[2017-10-26] MEDS: FUROSEMIDE 40 MG INJ IV (09:32)
[2017-10-26] MEDS: DILTIAZEM 30 MG TAB PO ×2 (09:32→12:28)
[2017-10-26] MEDS: SPIRONOLACTONE 25 MG TAB PO (09:32)
[2017-10-26] MEDS: DOCUSATE SODIUM 100 MG CAP PO ×2 (09:33→20:00)
[2017-10-26] MEDS: ACETAZOLAMIDE 500 MG INJ IV (17:16)
[2017-10-26] MEDS: LEVALBUTEROL (NEB) 0.63 MG/3 ML AMP HHN (19:52)
[2017-10-26] MEDS: IPRATROPIUM (NEB) 0.5 MG/2.5 ML AMP HHN (19:52)
[2017-10-26] MEDS: DILTIAZEM (CD) 120 MG CAP PO (20:38)
[2017-10-26] MEDS: DIGOXIN 500 MCG INJ IV ×2 (20:38→22:28)
[2017-10-27] MEDS: morphine 2 MG INJ IV (02:38)
[2017-10-27 07:16] LABS: ADD MAN DIFF? NO
[2017-10-27 07:22] LABS: ABNORMAL IP MESSAGE 1; BASOPHIL # 0.1 10^3/ul (0.0-0.1); BASOPHILS % 0.6 % (0.0-2.0); EOSINOPHILS # 0.1 10^3/ul (0.0-0.5); EOSINOPHILS % 0.8 % (0.0-7.0); HEMATOCRIT 42.9 % (42.0-52.0); HEMOGLOBIN 12.4 g/dl (14.0-18.0); LYMPHOCYTES # 0.9 10^3/ul (0.8-2.9); LYMPHOCYTES % 10.7 % (15.0-51.0); MEAN CORPUSCULAR HEMOGLOBIN 27.4 pg (29.0-33.0); MEAN CORPUSCULAR HGB CONC 28.9 g/dl (32.0-37.0); MEAN CORPUSCULAR VOLUME 94.7 fl (82.0-101.0); MEAN PLATELET VOLUME 9.1 fl (7.4-10.4); MONOCYTE # 0.6 10^3/ul (0.3-0.9); MONOCYTES % 6.9 % (0.0-11.0); NEUTROPHILS % 80.7 % (39.0-77.0); PLATELET COUNT 294 10^3/UL (140-415); POSITIVE DIFF @See below; RED BLOOD COUNT 4.53 10^6/ul (4.70-6.10); RED CELL DISTRIBUTION WIDTH 15.5 % (11.5-14.5)
[2017-10-27 07:22] LABS: WHITE BLOOD COUNT 8.6 10^3/ul (4.8-10.8)
[2017-10-27 07:49] LABS: DIGOXIN 0.5 ng/ml (1.0-2.0); MAGNESIUM 2.1 mg/dl (1.7-2.5)
[2017-10-27 07:52] LABS: ALANINE AMINOTRANSFERASE 33 IU/L (13-69); ALBUMIN 3.7 g/dl (3.3-4.9); ALBUMIN/GLOBULIN RATIO 1.15; ALKALINE PHOSPHATASE 68 IU/L (42-121); ASPARTATE AMINO TRANSFERASE 31 IU/L (15-46); BILIRUBIN,INDIRECT 0.2 mg/dl (0-1.1); BILIRUBIN,TOTAL 0.2 mg/dl (0.2-1.3); BLOOD UREA NITROGEN 11 mg/dl (7-20); CALCIUM 9.6 mg/dl (8.4-10.2); CHLORIDE 94 mmol/L (97-110); CREATININE 0.97 mg/dl (0.61-1.24); GLUCOSE 116 mg/dl (70-220); POTASSIUM 4.6 mmol/L (3.5-5.1); SODIUM 141 mmol/L (135-144); TOTAL PROTEIN 6.9 g/dl (6.1-8.1)
[2017-10-27 07:54] LABS: B-TYPE NATRIURETIC PEPTIDE 1250 PG/ML (0-125)
[2017-10-27 07:58] LABS: ANION GAP 12 (8-16)
[2017-10-27 08:00] LABS: CARBON DIOXIDE 40 mmol/L (21-31)
[2017-10-27] MEDS: DOCUSATE SODIUM 100 MG CAP PO ×3 (08:00→19:51)
[2017-10-27] MEDS: APIXABAN 5 MG TABLET PO ×2 (09:38→20:52)
[2017-10-27] MEDS: SPIRONOLACTONE 25 MG TAB PO (09:38)
[2017-10-27] MEDS: DILTIAZEM (CD) 120 MG CAP PO ×2 (09:38→20:51)
[2017-10-27] MEDS: FUROSEMIDE 40 MG INJ IV (09:39)
[2017-10-27] MEDS: IPRATROPIUM (NEB) 0.5 MG/2.5 ML AMP HHN (12:47)
[2017-10-27] MEDS: LEVALBUTEROL (NEB) 0.63 MG/3 ML AMP HHN (12:47)
[2017-10-27] MEDS: DIGOXIN 0.25 MG TAB PO (14:25)
[2017-10-27] MEDS: ACETAZOLAMIDE 500 MG INJ IV (14:25)
[2017-10-27] MEDS: METHYLPREDNISOLONE 125 MG INJ IV ×2 (18:14→22:08)
[2017-10-27] MEDS: LEVOFLOXACIN 500MG/D5W (PMX) 100 ML IVPB (18:14)
[2017-10-28] MEDS: METHYLPREDNISOLONE 125 MG INJ IV ×3 (05:32→21:17)
[2017-10-28 07:38] LABS: ADD MAN DIFF? NO
[2017-10-28 07:46] LABS: WHITE BLOOD COUNT 7.2 10^3/ul (4.8-10.8)
[2017-10-28 07:46] LABS: ABNORMAL IP MESSAGE 1; BASOPHILS % 0.1 % (0.0-2.0); HEMATOCRIT 43.4 % (42.0-52.0); HEMOGLOBIN 12.8 g/dl (14.0-18.0); LYMPHOCYTES # 0.4 10^3/ul (0.8-2.9); LYMPHOCYTES % 6.1 % (15.0-51.0); MEAN CORPUSCULAR HEMOGLOBIN 27.3 pg (29.0-33.0); MEAN CORPUSCULAR HGB CONC 29.5 g/dl (32.0-37.0); MEAN CORPUSCULAR VOLUME 92.5 fl (82.0-101.0); MEAN PLATELET VOLUME 9.5 fl (7.4-10.4); MONOCYTES % 0.6 % (0.0-11.0); NEUTROPHIL # 6.7 10^3/ul (1.6-7.5); NEUTROPHILS % 92.9 % (39.0-77.0); PLATELET COUNT 320 10^3/UL (140-415); POSITIVE DIFF @See below; RED BLOOD COUNT 4.69 10^6/ul (4.70-6.10); RED CELL DISTRIBUTION WIDTH 14.8 % (11.5-14.5)
[2017-10-28] MEDS: DOCUSATE SODIUM 100 MG CAP PO ×2 (08:00→21:18)
[2017-10-28 08:03] LABS: DIGOXIN 0.5 ng/ml (1.0-2.0)
[2017-10-28 08:05] LABS: ALANINE AMINOTRANSFERASE 37 IU/L (13-69); ALBUMIN 3.8 g/dl (3.3-4.9); ALBUMIN/GLOBULIN RATIO 1.15; ALKALINE PHOSPHATASE 68 IU/L (42-121); ANION GAP 14 (8-16); ASPARTATE AMINO TRANSFERASE 26 IU/L (15-46); BILIRUBIN,INDIRECT 0.2 mg/dl (0-1.1); BILIRUBIN,TOTAL 0.2 mg/dl (0.2-1.3); BLOOD UREA NITROGEN 16 mg/dl (7-20); CALCIUM 9.6 mg/dl (8.4-10.2); CARBON DIOXIDE 31 mmol/L (21-31); CHLORIDE 97 mmol/L (97-110); CREATININE 0.85 mg/dl (0.61-1.24); GLUCOSE 279 mg/dl (70-220); POTASSIUM 4.3 mmol/L (3.5-5.1); SODIUM 138 mmol/L (135-144); TOTAL PROTEIN 7.1 g/dl (6.1-8.1)
[2017-10-28 08:09] LABS: B-TYPE NATRIURETIC PEPTIDE 911 PG/ML (0-125)
[2017-10-28] MEDS: APIXABAN 5 MG TABLET PO ×2 (10:10→21:18)
[2017-10-28] MEDS: FUROSEMIDE 40 MG INJ IV (10:10)
[2017-10-28] MEDS: SPIRONOLACTONE 25 MG TAB PO (10:10)
[2017-10-28] MEDS: DILTIAZEM (CD) 120 MG CAP PO ×2 (10:10→21:17)
[2017-10-28] MEDS: ACETAZOLAMIDE 500 MG INJ IV (10:11)
[2017-10-28] MEDS: DIGOXIN 0.25 MG TAB PO (14:50)
[2017-10-28] MEDS: LEVOFLOXACIN 500MG/D5W (PMX) 100 ML IVPB (15:12)
[2017-10-28] MEDS: morphine LIQ (10 MG/5 ML) CUP PO ×2 (15:14→21:29)
[2017-10-28] MEDS: TIOTROPIUM 18 MCG CAPSULE INHA DEV INH (18:26)
[2017-10-28] MEDS: SALMETEROL/FLUTICASONE 250/50 INHA INH (21:16)
[2017-10-29] MEDS: METHYLPREDNISOLONE 125 MG INJ IV ×2 (05:46→13:02)
[2017-10-29] MEDS: morphine LIQ (10 MG/5 ML) CUP PO (06:02)
[2017-10-29 07:07] LABS: MAGNESIUM 2.1 mg/dl (1.7-2.5)
[2017-10-29] MEDS: FUROSEMIDE 40 MG INJ IV (08:45)
[2017-10-29] MEDS: TIOTROPIUM 18 MCG CAPSULE INHA DEV INH (08:46)
[2017-10-29] MEDS: APIXABAN 5 MG TABLET PO ×2 (08:46→22:49)
[2017-10-29] MEDS: DILTIAZEM (CD) 120 MG CAP PO ×2 (08:46→22:50)
[2017-10-29] MEDS: DOCUSATE SODIUM 100 MG CAP PO ×2 (08:46→22:48)
[2017-10-29] MEDS: SPIRONOLACTONE 25 MG TAB PO (08:46)
[2017-10-29] MEDS: SALMETEROL/FLUTICASONE 250/50 INHA INH ×2 (09:07→22:49)
[2017-10-29] MEDS: DIGOXIN 0.25 MG TAB PO (13:02)
[2017-10-29] MEDS: LEVOFLOXACIN 500MG/D5W (PMX) 100 ML IVPB (15:00)
[2017-10-29] MEDS: METHYLPREDNISOLONE 40 MG INJ IV (22:49)
[2017-10-30] MEDS: LEVOFLOXACIN 500 MG TAB PO (06:46)
[2017-10-30] MEDS: FUROSEMIDE 40 MG TAB PO (06:47)
[2017-10-30 08:00] LABS: ALANINE AMINOTRANSFERASE 98 IU/L (13-69); ALBUMIN/GLOBULIN RATIO 1.29; ALKALINE PHOSPHATASE 66 IU/L (42-121); ANION GAP 14 (8-16); ASPARTATE AMINO TRANSFERASE 77 IU/L (15-46); BILIRUBIN,INDIRECT 0.1 mg/dl (0-1.1); BILIRUBIN,TOTAL 0.1 mg/dl (0.2-1.3); BLOOD UREA NITROGEN 26 mg/dl (7-20); CARBON DIOXIDE 29 mmol/L (21-31); CHLORIDE 101 mmol/L (97-110); CREATININE 0.83 mg/dl (0.61-1.24); GLUCOSE 155 mg/dl (70-220); MAGNESIUM 2.2 mg/dl (1.7-2.5); POTASSIUM 4.7 mmol/L (3.5-5.1); SODIUM 139 mmol/L (135-144); TOTAL PROTEIN 7.1 g/dl (6.1-8.1)
[2017-10-30 08:07] LABS: B-TYPE NATRIURETIC PEPTIDE 1070 PG/ML (0-125)
[2017-10-30] MEDS: METHYLPREDNISOLONE 40 MG INJ IV (09:00)
[2017-10-30] MEDS: SPIRONOLACTONE 25 MG TAB PO (09:15)
[2017-10-30] MEDS: DILTIAZEM (CD) 120 MG CAP PO (09:15)
[2017-10-30] MEDS: DOCUSATE SODIUM 100 MG CAP PO (09:15)
[2017-10-30] MEDS: SALMETEROL/FLUTICASONE 250/50 INHA INH (09:16)
[2017-10-30] MEDS: APIXABAN 5 MG TABLET PO (09:16)
[2017-10-30] MEDS: TIOTROPIUM 18 MCG CAPSULE INHA DEV INH (09:17)
[2017-10-30] MEDS: IOHEXOL 300MG/ML 150 ML BTL (11:20)
[2017-10-30] MEDS: SOD CHLORIDE 0.9% 100 ML (11:20)
[2017-10-30] MEDS: DIGOXIN 0.25 MG TAB PO (12:59)
== END 2017-10-30 13:15 | disposition left against medical advice (07) | DRG 291 ==
LOC: TEL 16:06 → E/R 14:04
DX: I50.33 Acute on chronic diastolic (congestive) heart failure (principal); J96.00 Acute respiratory failure, unspecified whether with hypoxia or hypercapnia; I48.91 Unspecified atrial fibrillation; Z79.01 Long term (current) use of anticoagulants; E66.01 Morbid (severe) obesity due to excess calories; J44.9 Chronic obstructive pulmonary disease, unspecified; G47.30 Sleep apnea, unspecified; Z68.29 Body mass index [BMI] 29.0-29.9, adult; I11.0 Hypertensive heart disease with heart failure
CPT/HCPCS: 36415; 36600; 71045; 71260; 80048; 80053; 80162; 82550; 82553; 82803; 83036; 83735; 83880; 84439; 84443; 84484; 85025; 85610; 85730; 93005; 93970; 94640; 94660; 94664; 96374; 96375; 96376; 99291-25; J1120

== ENCOUNTER 2017-11-01 16:10 | Inpatient (IN) | payer OTHER ==
[2017-11-01] MEDS: DILTIAZEM 25 MG INJ IV (21:08)
[2017-11-01 21:21] LABS: ADD MAN DIFF? NO
[2017-11-01 21:24] LABS: BASOPHILS % 0.3 % (0.0-2.0); EOSINOPHILS # 0.2 10^3/ul (0.0-0.5); EOSINOPHILS % 1.6 % (0.0-7.0); HEMATOCRIT 44.3 % (42.0-52.0); HEMOGLOBIN 13.6 g/dl (14.0-18.0); LYMPHOCYTES # 1.7 10^3/ul (0.8-2.9); LYMPHOCYTES % 15.4 % (15.0-51.0); MEAN CORPUSCULAR HEMOGLOBIN 27.4 pg (29.0-33.0); MEAN CORPUSCULAR HGB CONC 30.7 g/dl (32.0-37.0); MEAN CORPUSCULAR VOLUME 89.1 fl (82.0-101.0); MEAN PLATELET VOLUME 10.1 fl (7.4-10.4); MONOCYTE # 0.7 10^3/ul (0.3-0.9); MONOCYTES % 6.3 % (0.0-11.0); NEUTROPHIL # 8.3 10^3/ul (1.6-7.5); NEUTROPHILS % 75.7 % (39.0-77.0); PLATELET COUNT 300 10^3/UL (140-415); RED BLOOD COUNT 4.97 10^6/ul (4.70-6.10); RED CELL DISTRIBUTION WIDTH 15.6 % (11.5-14.5)
[2017-11-01] MEDS: DILTIAZEM-D5W 125MG/125ML DRIP 125 ML IV (21:27)
[2017-11-01 21:41] LABS: INR 0.96; PROTIME 12.9 Sec (11.9-14.9)
[2017-11-01 21:42] LABS: PARTIAL THROMBOPLASTIN TIME 29.5 Sec (25.0-35.0)
[2017-11-01 21:44] LABS: ALANINE AMINOTRANSFERASE 62 IU/L (13-69); ALBUMIN 3.6 g/dl (3.3-4.9); ALBUMIN/GLOBULIN RATIO 1.38; ALKALINE PHOSPHATASE 68 IU/L (42-121); ANION GAP 13 (8-16); ASPARTATE AMINO TRANSFERASE 25 IU/L (15-46); BLOOD UREA NITROGEN 21 mg/dl (7-20); CALCIUM 8.5 mg/dl (8.4-10.2); CARBON DIOXIDE 31 mmol/L (21-31); CHLORIDE 99 mmol/L (97-110); CREATININE 0.84 mg/dl (0.61-1.24); GLUCOSE 190 mg/dl (70-220); SODIUM 140 mmol/L (135-144); TOTAL PROTEIN 6.2 g/dl (6.1-8.1)
[2017-11-01 21:55] LABS: B-TYPE NATRIURETIC PEPTIDE 1450 PG/ML (0-125)
[2017-11-01 22:00] LABS: TROPONIN-I < 0.012 ng/ml (0.00-0.12)
[2017-11-01] MEDS ORDERED: ONDANSETRON 4 MG INJ IV (22:30)
[2017-11-01] MEDS ORDERED: ACETAMINOPHEN 325 MG TAB PO (22:30)
[2017-11-02] MEDS ORDERED: ZOLPIDEM 5 MG TAB PO (00:30)
[2017-11-02] MEDS ORDERED: ACETAMINOPHEN 325 MG TAB PO (00:30)
[2017-11-02] MEDS ORDERED: ONDANSETRON 4 MG INJ IV (00:30)
[2017-11-02] MEDS: DILTIAZEM-D5W 125MG/125ML DRIP 125 ML IV ×2 (01:01→08:46)
[2017-11-02] MEDS: POTASSIUM CHLORIDE (SR) 20 MEQ TAB PO ×2 (01:17→04:59)
[2017-11-02 07:41] LABS: ADD MAN DIFF? NO
[2017-11-02 07:43] LABS: BASOPHILS % 0.2 % (0.0-2.0); EOSINOPHILS # 0.3 10^3/ul (0.0-0.5); EOSINOPHILS % 2.7 % (0.0-7.0); HEMATOCRIT 41.5 % (42.0-52.0); LYMPHOCYTES # 1.4 10^3/ul (0.8-2.9); LYMPHOCYTES % 14.6 % (15.0-51.0); MEAN CORPUSCULAR HEMOGLOBIN 27.8 pg (29.0-33.0); MEAN CORPUSCULAR HGB CONC 31.3 g/dl (32.0-37.0); MEAN CORPUSCULAR VOLUME 88.9 fl (82.0-101.0); MEAN PLATELET VOLUME 9.8 fl (7.4-10.4); MONOCYTE # 0.5 10^3/ul (0.3-0.9); MONOCYTES % 5.5 % (0.0-11.0); NEUTROPHIL # 7.5 10^3/ul (1.6-7.5); NEUTROPHILS % 76.3 % (39.0-77.0); PLATELET COUNT 304 10^3/UL (140-415); RED BLOOD COUNT 4.67 10^6/ul (4.70-6.10); RED CELL DISTRIBUTION WIDTH 15.9 % (11.5-14.5)
[2017-11-02 07:43] LABS: WHITE BLOOD COUNT 9.8 10^3/ul (4.8-10.8)
[2017-11-02 08:05] LABS: CREATINE KINASE < 20 IU/L (23-200)
[2017-11-02 08:11] LABS: ALANINE AMINOTRANSFERASE 56 IU/L (13-69); ALBUMIN 3.3 g/dl (3.3-4.9); ALBUMIN/GLOBULIN RATIO 1.26; ALKALINE PHOSPHATASE 52 IU/L (42-121); ANION GAP 8 (8-16); ASPARTATE AMINO TRANSFERASE 22 IU/L (15-46); BILIRUBIN,INDIRECT 0.2 mg/dl (0-1.1); BILIRUBIN,TOTAL 0.2 mg/dl (0.2-1.3); BLOOD UREA NITROGEN 15 mg/dl (7-20); CALCIUM 9.2 mg/dl (8.4-10.2); CARBON DIOXIDE 35 mmol/L (21-31); CHLORIDE 101 mmol/L (97-110); CREATININE 0.67 mg/dl (0.61-1.24); GLUCOSE 135 mg/dl (70-220); PHOSPHORUS 4.5 mg/dl (2.5-4.9); POTASSIUM 4.2 mmol/L (3.5-5.1); SODIUM 140 mmol/L (135-144); TOTAL PROTEIN 5.9 g/dl (6.1-8.1)
[2017-11-02] MEDS: METOPROLOL 25 MG TAB PO ×2 (08:11→21:59)
[2017-11-02] MEDS: ASPIRIN (EC) 81 MG TAB PO (08:11)
[2017-11-02] MEDS: APIXABAN 5 MG TABLET PO ×2 (08:11→21:57)
[2017-11-02] MEDS: FUROSEMIDE 20 MG TAB PO ×2 (08:11→17:18)
[2017-11-02 08:15] LABS: TROPONIN-I 0.025 ng/ml (0.00-0.12)
[2017-11-02 08:24] LABS: CK-MB 0.26 ng/ml (0.0-2.4)
[2017-11-02] MEDS ORDERED: HEPARIN 5,000 UNIT/0.5 ML VIAL SC (09:00)
[2017-11-02] MEDS: morphine 2 MG INJ IV ×4 (10:17→22:00)
[2017-11-02 14:26] LABS: CREATINE KINASE < 20 IU/L (23-200)
[2017-11-02 14:27] LABS: CK-MB 0.27 ng/ml (0.0-2.4)
[2017-11-02 15:56] LABS: TROPONIN-I < 0.012 ng/ml (0.00-0.12)
[2017-11-02] MEDS ORDERED: BISACODYL (EC) 5 MG TAB PO (16:30)
[2017-11-02] MEDS: DOCUSATE SODIUM 100 MG CAP PO (21:00)
[2017-11-03] MEDS: morphine 2 MG INJ IV ×2 (02:01→08:33)
[2017-11-03] MEDS: FUROSEMIDE 20 MG TAB PO ×2 (05:41→18:00)
[2017-11-03 09:51] LABS: ADD MAN DIFF? NO
[2017-11-03 09:58] LABS: BASOPHILS % 0.4 % (0.0-2.0); EOSINOPHILS # 0.3 10^3/ul (0.0-0.5); EOSINOPHILS % 2.8 % (0.0-7.0); HEMATOCRIT 43.9 % (42.0-52.0); HEMOGLOBIN 13.4 g/dl (14.0-18.0); LYMPHOCYTES # 1.7 10^3/ul (0.8-2.9); LYMPHOCYTES % 16.2 % (15.0-51.0); MEAN CORPUSCULAR HEMOGLOBIN 27.7 pg (29.0-33.0); MEAN CORPUSCULAR HGB CONC 30.5 g/dl (32.0-37.0); MEAN CORPUSCULAR VOLUME 90.9 fl (82.0-101.0); MEAN PLATELET VOLUME 9.9 fl (7.4-10.4); MONOCYTE # 0.6 10^3/ul (0.3-0.9); MONOCYTES % 5.6 % (0.0-11.0); NEUTROPHILS % 74.3 % (39.0-77.0); PLATELET COUNT 310 10^3/UL (140-415); RED BLOOD COUNT 4.83 10^6/ul (4.70-6.10); RED CELL DISTRIBUTION WIDTH 15.7 % (11.5-14.5)
[2017-11-03 09:58] LABS: WHITE BLOOD COUNT 10.8 10^3/ul (4.8-10.8)
[2017-11-03] MEDS: ASPIRIN (EC) 81 MG TAB PO (10:10)
[2017-11-03] MEDS: DOCUSATE SODIUM 100 MG CAP PO ×2 (10:11→20:53)
[2017-11-03] MEDS: APIXABAN 5 MG TABLET PO ×2 (10:11→20:53)
[2017-11-03 10:14] LABS: BLOOD UREA NITROGEN 15 mg/dl (7-20); CHLORIDE 94 mmol/L (97-110); GLUCOSE 109 mg/dl (70-220); POTASSIUM 4.3 mmol/L (3.5-5.1); SODIUM 141 mmol/L (135-144)
[2017-11-03 10:16] LABS: PHOSPHORUS 3.7 mg/dl (2.5-4.9)
[2017-11-03 10:16] LABS: MAGNESIUM 1.8 mg/dl (1.7-2.5)
[2017-11-03] MEDS: DILTIAZEM (CD) 120 MG CAP PO ×2 (10:28→20:54)
[2017-11-03 10:32] LABS: ANION GAP 11 (8-16)
[2017-11-03 10:46] LABS: CARBON DIOXIDE 40 mmol/L (21-31)
[2017-11-03] MEDS: DIGOXIN 0.25 MG TAB PO (13:28)
[2017-11-03] MEDS: LEVALBUTEROL (NEB) 0.31 MG/3 ML AMP HHN (15:59)
[2017-11-03] MEDS: morphine LIQ (10 MG/5 ML) CUP PO ×2 (17:13→21:23)
[2017-11-03] MEDS: MUPIROCIN 2% 22 GM OINT TOP (20:53)
[2017-11-03] MEDS: SALMETEROL/FLUTICASONE 250/50 INHA INH (20:54)
[2017-11-04] MEDS: morphine LIQ (10 MG/5 ML) CUP PO ×2 (04:44→21:58)
[2017-11-04] MEDS: FUROSEMIDE 20 MG TAB PO ×2 (06:24→08:41)
[2017-11-04] MEDS: MUPIROCIN 2% 22 GM OINT TOP ×2 (08:10→21:57)
[2017-11-04] MEDS: ASPIRIN (EC) 81 MG TAB PO (08:11)
[2017-11-04] MEDS: APIXABAN 5 MG TABLET PO ×2 (08:11→21:58)
[2017-11-04] MEDS: DOCUSATE SODIUM 100 MG CAP PO ×2 (08:11→21:59)
[2017-11-04] MEDS: SALMETEROL/FLUTICASONE 250/50 INHA INH ×2 (08:11→21:57)
[2017-11-04] MEDS: DILTIAZEM (CD) 120 MG CAP PO ×2 (08:11→21:59)
[2017-11-04 08:49] LABS: ADD MAN DIFF? NO
[2017-11-04 08:50] LABS: BASOPHILS % 0.4 % (0.0-2.0); EOSINOPHILS # 0.2 10^3/ul (0.0-0.5); EOSINOPHILS % 2.5 % (0.0-7.0); HEMATOCRIT 46.4 % (42.0-52.0); HEMOGLOBIN 14.1 g/dl (14.0-18.0); LYMPHOCYTES # 1.5 10^3/ul (0.8-2.9); LYMPHOCYTES % 15.8 % (15.0-51.0); MEAN CORPUSCULAR HEMOGLOBIN 27.9 pg (29.0-33.0); MEAN CORPUSCULAR HGB CONC 30.4 g/dl (32.0-37.0); MEAN CORPUSCULAR VOLUME 91.7 fl (82.0-101.0); MEAN PLATELET VOLUME 9.6 fl (7.4-10.4); MONOCYTE # 0.6 10^3/ul (0.3-0.9); MONOCYTES % 6.4 % (0.0-11.0); NEUTROPHIL # 7.2 10^3/ul (1.6-7.5); NEUTROPHILS % 73.9 % (39.0-77.0); PLATELET COUNT 321 10^3/UL (140-415); RED BLOOD COUNT 5.06 10^6/ul (4.70-6.10); RED CELL DISTRIBUTION WIDTH 15.5 % (11.5-14.5)
[2017-11-04 08:50] LABS: WHITE BLOOD COUNT 9.7 10^3/ul (4.8-10.8)
[2017-11-04 08:51] LABS: AADO2 Arterial 22.3 mmHg (7.0-24.0); Allen Test ACCEPTAB; Arterial Base Excess 12.3 mmol/L (-3.0-3); Arterial Blood Gas Oxygen Sat 91.1 mmHG (95.0-98.0); Arterial COHb 1.3 % (0.0-3.0); Arterial Fraction of Oxyhgb 89.6 % (93.0-99.0); Arterial HCO3 39.1 mmol/L (22.0-26.0); Arterial MetHb 0.3 % (0.0-1.5); Arterial Total Hemglobin 15.2 g/dl (12.0-18.0); Arterial pCO2 58.1 mmhg (35-45); MODE ROOM AIR; Site Right Radial
[2017-11-04 09:20] LABS: DIGOXIN 0.5 ng/ml (1.0-2.0)
[2017-11-04 09:57] LABS: ALANINE AMINOTRANSFERASE 49 IU/L (13-69); ALBUMIN 4.1 g/dl (3.3-4.9); ALBUMIN/GLOBULIN RATIO 1.24; ALKALINE PHOSPHATASE 66 IU/L (42-121); ANION GAP 10 (8-16); ASPARTATE AMINO TRANSFERASE 28 IU/L (15-46); BILIRUBIN,INDIRECT 0.2 mg/dl (0-1.1); BILIRUBIN,TOTAL 0.2 mg/dl (0.2-1.3); BLOOD UREA NITROGEN 12 mg/dl (7-20); CALCIUM 9.8 mg/dl (8.4-10.2); CARBON DIOXIDE 39 mmol/L (21-31); CHLORIDE 94 mmol/L (97-110); CREATININE 0.69 mg/dl (0.61-1.24); GLUCOSE 126 mg/dl (70-220); MAGNESIUM 1.9 mg/dl (1.7-2.5); POTASSIUM 4.1 mmol/L (3.5-5.1); SODIUM 139 mmol/L (135-144); TOTAL PROTEIN 7.4 g/dl (6.1-8.1)
[2017-11-04 10:05] LABS: B-TYPE NATRIURETIC PEPTIDE 675 PG/ML (0-125)
[2017-11-04] MEDS: ACETAZOLAMIDE 500 MG INJ IV (10:23)
[2017-11-04] MEDS: LEVALBUTEROL (NEB) 0.31 MG/3 ML AMP HHN (12:04)
[2017-11-04] MEDS: DIGOXIN 0.25 MG TAB PO (14:05)
[2017-11-05 08:33] LABS: ADD MAN DIFF? NO
[2017-11-05 08:44] LABS: BASOPHIL # 0.1 10^3/ul (0.0-0.1); BASOPHILS % 0.5 % (0.0-2.0); EOSINOPHILS # 0.3 10^3/ul (0.0-0.5); EOSINOPHILS % 2.5 % (0.0-7.0); HEMATOCRIT 49.5 % (42.0-52.0); HEMOGLOBIN 15.1 g/dl (14.0-18.0); LYMPHOCYTES # 1.7 10^3/ul (0.8-2.9); MEAN CORPUSCULAR HEMOGLOBIN 27.6 pg (29.0-33.0); MEAN CORPUSCULAR HGB CONC 30.5 g/dl (32.0-37.0); MEAN CORPUSCULAR VOLUME 90.5 fl (82.0-101.0); MEAN PLATELET VOLUME 9.4 fl (7.4-10.4); MONOCYTE # 0.8 10^3/ul (0.3-0.9); MONOCYTES % 7.2 % (0.0-11.0); NEUTROPHIL # 7.7 10^3/ul (1.6-7.5); NEUTROPHILS % 72.4 % (39.0-77.0); PLATELET COUNT 348 10^3/UL (140-415); RED BLOOD COUNT 5.47 10^6/ul (4.70-6.10); RED CELL DISTRIBUTION WIDTH 15.6 % (11.5-14.5)
[2017-11-05 08:44] LABS: WHITE BLOOD COUNT 10.6 10^3/ul (4.8-10.8)
[2017-11-05] MEDS: ASPIRIN (EC) 81 MG TAB PO (08:49)
[2017-11-05] MEDS: FUROSEMIDE 20 MG TAB PO (08:49)
[2017-11-05] MEDS: MUPIROCIN 2% 22 GM OINT TOP (08:49)
[2017-11-05] MEDS: DOCUSATE SODIUM 100 MG CAP PO (08:49)
[2017-11-05] MEDS: SALMETEROL/FLUTICASONE 250/50 INHA INH (08:49)
[2017-11-05] MEDS: DILTIAZEM (CD) 120 MG CAP PO (08:50)
[2017-11-05] MEDS: APIXABAN 5 MG TABLET PO (08:50)
[2017-11-05 08:54] LABS: ANION GAP 15 (8-16); BLOOD UREA NITROGEN 16 mg/dl (7-20); CALCIUM 10.2 mg/dl (8.4-10.2); CARBON DIOXIDE 35 mmol/L (21-31); CHLORIDE 96 mmol/L (97-110); CREATININE 0.99 mg/dl (0.61-1.24); GLUCOSE 132 mg/dl (70-220); POTASSIUM 4.9 mmol/L (3.5-5.1); SODIUM 141 mmol/L (135-144)
[2017-11-05 09:01] LABS: PHOSPHORUS 4.6 mg/dl (2.5-4.9)
[2017-11-05 09:01] LABS: MAGNESIUM 2.1 mg/dl (1.7-2.5)
== END 2017-11-05 10:05 | disposition home or self-care (01) | DRG 308 ==
LOC: E/R 16:10 → MS4 22:08
DX: I48.91 Unspecified atrial fibrillation (principal); I50.33 Acute on chronic diastolic (congestive) heart failure; Z68.42 Body mass index [BMI] 45.0-49.9, adult; I11.0 Hypertensive heart disease with heart failure; E66.01 Morbid (severe) obesity due to excess calories; J44.9 Chronic obstructive pulmonary disease, unspecified; G47.33 Obstructive sleep apnea (adult) (pediatric); E11.9 Type 2 diabetes mellitus without complications; F17.210 Nicotine dependence, cigarettes, uncomplicated; Z79.02 Long term (current) use of antithrombotics/antiplatelets; Z91.14 Patient's other noncompliance with medication regimen; Z86.711 Personal history of pulmonary embolism
CPT/HCPCS: 36415; 36600; 71045; 80048; 80053; 80162; 82550; 82553; 82803; 83735; 83880; 84100; 84484; 85025; 85610; 85730; 87081; 93005; 94640; 94664; 96374; 96375; 99291-25; J1120

== ENCOUNTER 2017-11-17 14:03 | Inpatient (IN) | payer OTHER ==
[2017-11-17] MEDS: FUROSEMIDE 40 MG INJ IV ×2 (15:30→15:46)
[2017-11-17] MEDS: DILTIAZEM 25 MG INJ IV (15:46)
[2017-11-17 15:53] LABS: ADD MAN DIFF? NO
[2017-11-17 15:56] LABS: WHITE BLOOD COUNT 8.1 10^3/ul (4.8-10.8)
[2017-11-17 15:56] LABS: BASOPHILS % 0.5 % (0.0-2.0); EOSINOPHILS # 0.2 10^3/ul (0.0-0.5); EOSINOPHILS % 2.1 % (0.0-7.0); HEMATOCRIT 39.1 % (42.0-52.0); HEMOGLOBIN 11.9 g/dl (14.0-18.0); LYMPHOCYTES # 1.8 10^3/ul (0.8-2.9); LYMPHOCYTES % 21.8 % (15.0-51.0); MEAN CORPUSCULAR HEMOGLOBIN 27.4 pg (29.0-33.0); MEAN CORPUSCULAR HGB CONC 30.4 g/dl (32.0-37.0); MEAN CORPUSCULAR VOLUME 90.1 fl (82.0-101.0); MEAN PLATELET VOLUME 10.1 fl (7.4-10.4); MONOCYTE # 0.7 10^3/ul (0.3-0.9); MONOCYTES % 9.1 % (0.0-11.0); NEUTROPHIL # 5.4 10^3/ul (1.6-7.5); NEUTROPHILS % 66.1 % (39.0-77.0); PLATELET COUNT 199 10^3/UL (140-415); RED BLOOD COUNT 4.34 10^6/ul (4.70-6.10); RED CELL DISTRIBUTION WIDTH 15.9 % (11.5-14.5)
[2017-11-17 16:14] LABS: ALANINE AMINOTRANSFERASE 44 IU/L (13-69); ALBUMIN 3.8 g/dl (3.3-4.9); ALBUMIN/GLOBULIN RATIO 1.35; ALKALINE PHOSPHATASE 60 IU/L (42-121); ANION GAP 12 (8-16); ASPARTATE AMINO TRANSFERASE 23 IU/L (15-46); BILIRUBIN,INDIRECT 0.1 mg/dl (0-1.1); BILIRUBIN,TOTAL 0.1 mg/dl (0.2-1.3); BLOOD UREA NITROGEN 11 mg/dl (7-20); CARBON DIOXIDE 35 mmol/L (21-31); CHLORIDE 99 mmol/L (97-110); CREATININE 0.83 mg/dl (0.61-1.24); GLUCOSE 105 mg/dl (70-220); POTASSIUM 3.4 mmol/L (3.5-5.1); SODIUM 143 mmol/L (135-144); TOTAL PROTEIN 6.6 g/dl (6.1-8.1)
[2017-11-17] MEDS: ALBUTEROL 0.5% (NEB) 2.5 MG/0.5 ML AMP INH (16:15)
[2017-11-17 16:25] LABS: B-TYPE NATRIURETIC PEPTIDE 2070 PG/ML (0-125); TROPONIN-I 0.013 ng/ml (0.00-0.12)
[2017-11-17 16:26] LABS: DIGOXIN < 0.4 ng/ml (1.0-2.0)
[2017-11-17] MEDS ORDERED: DILTIAZEM-D5W 125MG/125ML DRIP 125 ML IV ×2 (16:30→17:30)
[2017-11-17 16:40] LABS: MAGNESIUM 1.8 mg/dl (1.7-2.5)
[2017-11-17] MEDS: DIGOXIN 500 MCG INJ IV (17:26)
[2017-11-17] MEDS: POTASSIUM CHLORIDE 20 MEQ POWDER FOR ORAL SOLN PO (17:28)
[2017-11-17] MEDS ORDERED: ONDANSETRON 4 MG INJ IV (18:00)
[2017-11-17] MEDS ORDERED: BUMETANIDE 1 MG INJ IV (18:00)
[2017-11-17] MEDS ORDERED: ACETAMINOPHEN 325 MG TAB PO (18:00)
[2017-11-17 19:43] LABS: AADO2 Arterial 26.6 mmHg (7.0-24.0); Arterial Blood Gas Oxygen Sat 81.6 mmHG (95.0-98.0); Arterial COHb 2.6 % (0.0-3.0); Arterial Fraction of Oxyhgb 79.2 % (93.0-99.0); Arterial HCO3 35.7 mmol/L (22.0-26.0); Arterial MetHb 0.4 % (0.0-1.5); Arterial Total Hemglobin 13.7 g/dl (12.0-18.0); MODE ROOM AIR; Site LB
[2017-11-17] MEDS: LEVALBUTEROL (NEB) 0.63 MG/3 ML AMP HHN (19:53)
[2017-11-17] MEDS: BUMETANIDE 2 MG in DEXTROSE 5% 17 ML IV (20:04)
[2017-11-17] MEDS: SALMETEROL/FLUTICASONE 250/50 INHA INH (21:00)
[2017-11-17] MEDS: DILTIAZEM (CD) 120 MG CAP PO (22:17)
[2017-11-18] MEDS: LEVALBUTEROL (NEB) 0.63 MG/3 ML AMP HHN ×4 (02:29→19:59)
[2017-11-18] MEDS: BUMETANIDE 2 MG in DEXTROSE 5% 17 ML IV (08:03)
[2017-11-18] MEDS: DILTIAZEM (CD) 120 MG CAP PO ×2 (08:04→20:51)
[2017-11-18] MEDS: SALMETEROL/FLUTICASONE 250/50 INHA INH ×2 (08:04→20:50)
[2017-11-18] MEDS: APIXABAN 5 MG TABLET PO ×2 (08:21→20:50)
[2017-11-18] MEDS: DIGOXIN 0.25 MG TAB PO (12:34)
[2017-11-18] MEDS ORDERED: HYDROCODONE/APAP (5/325) TAB PO (14:30)
[2017-11-18] MEDS: METHYLPREDNISOLONE 40 MG INJ IV ×2 (15:02→20:50)
[2017-11-18] MEDS: LEVOFLOXACIN 500MG/D5W (PMX) 100 ML IVPB (15:03)
[2017-11-18] MEDS: FLUTICASONE 0.05% 16 GM NAS SPRAY NASAL ×2 (15:30→23:22)
[2017-11-18] MEDS: morphine 2 MG INJ IV ×2 (15:31→20:51)
[2017-11-18] MEDS: IPRATROPIUM (NEB) 0.5 MG/2.5 ML AMP HHN (19:59)
[2017-11-19] MEDS: morphine 2 MG INJ IV ×5 (01:12→21:26)
[2017-11-19] MEDS: LEVALBUTEROL (NEB) 0.63 MG/3 ML AMP HHN ×5 (01:18→20:02)
[2017-11-19] MEDS: METHYLPREDNISOLONE 40 MG INJ IV ×4 (05:36→17:14)
[2017-11-19 07:34] LABS: ADD MAN DIFF? NO
[2017-11-19 07:44] LABS: WHITE BLOOD COUNT 6.5 10^3/ul (4.8-10.8)
[2017-11-19 07:44] LABS: HEMATOCRIT 44.4 % (42.0-52.0); MEAN CORPUSCULAR HEMOGLOBIN 27.2 pg (29.0-33.0); MEAN CORPUSCULAR HGB CONC 29.3 g/dl (32.0-37.0); MEAN CORPUSCULAR VOLUME 92.9 fl (82.0-101.0); PLATELET COUNT 242 10^3/UL (140-415); RED BLOOD COUNT 4.78 10^6/ul (4.70-6.10); RED CELL DISTRIBUTION WIDTH 15.5 % (11.5-14.5)
[2017-11-19 07:45] LABS: ABNORMAL IP MESSAGE 1; BASOPHILS % 0.2 % (0.0-2.0); LYMPHOCYTES # 0.6 10^3/ul (0.8-2.9); LYMPHOCYTES % 8.4 % (15.0-51.0); MEAN PLATELET VOLUME 9.6 fl (7.4-10.4); MONOCYTE # 0.1 10^3/ul (0.3-0.9); MONOCYTES % 1.4 % (0.0-11.0); NEUTROPHIL # 5.9 10^3/ul (1.6-7.5); NEUTROPHILS % 89.7 % (39.0-77.0); POSITIVE DIFF @See below
[2017-11-19] MEDS: IPRATROPIUM (NEB) 0.5 MG/2.5 ML AMP HHN ×4 (08:00→20:02)
[2017-11-19 08:02] LABS: ANION GAP 14 (8-16); BLOOD UREA NITROGEN 9 mg/dl (7-20); CALCIUM 9.1 mg/dl (8.4-10.2); CARBON DIOXIDE 39 mmol/L (21-31); CHLORIDE 93 mmol/L (97-110); GLUCOSE 183 mg/dl (70-220); POTASSIUM 4.6 mmol/L (3.5-5.1); SODIUM 141 mmol/L (135-144)
[2017-11-19] MEDS: FUROSEMIDE 40 MG TAB PO (09:00)
[2017-11-19] MEDS: APIXABAN 5 MG TABLET PO ×2 (09:24→21:26)
[2017-11-19] MEDS: DILTIAZEM (CD) 120 MG CAP PO ×2 (09:24→21:26)
[2017-11-19] MEDS: SALMETEROL/FLUTICASONE 250/50 INHA INH ×2 (09:25→21:25)
[2017-11-19] MEDS: FLUTICASONE 0.05% 16 GM NAS SPRAY NASAL ×2 (09:25→21:25)
[2017-11-19] MEDS: DIGOXIN 0.25 MG TAB PO (12:37)
[2017-11-19] MEDS: LEVOFLOXACIN 500MG/D5W (PMX) 100 ML IVPB (15:42)
[2017-11-20] MEDS: LEVALBUTEROL (NEB) 0.63 MG/3 ML AMP HHN ×4 (01:14→19:51)
[2017-11-20] MEDS: morphine 2 MG INJ IV ×6 (01:32→23:18)
[2017-11-20] MEDS: FUROSEMIDE 40 MG INJ IV ×2 (06:07→17:21)
[2017-11-20] MEDS: IPRATROPIUM (NEB) 0.5 MG/2.5 ML AMP HHN ×3 (08:30→19:51)
[2017-11-20 08:32] LABS: ADD MAN DIFF? NO
[2017-11-20 08:40] LABS: BASOPHILS % 0.1 % (0.0-2.0); HEMOGLOBIN 13.1 g/dl (14.0-18.0); LYMPHOCYTES # 0.8 10^3/ul (0.8-2.9); LYMPHOCYTES % 7.8 % (15.0-51.0); MEAN CORPUSCULAR HEMOGLOBIN 27.5 pg (29.0-33.0); MEAN CORPUSCULAR HGB CONC 29.8 g/dl (32.0-37.0); MEAN CORPUSCULAR VOLUME 92.4 fl (82.0-101.0); MEAN PLATELET VOLUME 9.6 fl (7.4-10.4); MONOCYTE # 0.5 10^3/ul (0.3-0.9); MONOCYTES % 4.9 % (0.0-11.0); NEUTROPHIL # 8.6 10^3/ul (1.6-7.5); NEUTROPHILS % 86.7 % (39.0-77.0); PLATELET COUNT 257 10^3/UL (140-415); RED BLOOD COUNT 4.76 10^6/ul (4.70-6.10); RED CELL DISTRIBUTION WIDTH 15.8 % (11.5-14.5)
[2017-11-20 08:40] LABS: WHITE BLOOD COUNT 9.9 10^3/ul (4.8-10.8)
[2017-11-20 09:04] LABS: BLOOD UREA NITROGEN 16 mg/dl (7-20); CALCIUM 9.6 mg/dl (8.4-10.2); CHLORIDE 91 mmol/L (97-110); CREATININE 0.79 mg/dl (0.61-1.24); GLUCOSE 122 mg/dl (70-220); POTASSIUM 4.1 mmol/L (3.5-5.1); SODIUM 142 mmol/L (135-144)
[2017-11-20 09:14] LABS: ANION GAP 14 (8-16); CARBON DIOXIDE 41 mmol/L (21-31)
[2017-11-20] MEDS: DILTIAZEM (CD) 120 MG CAP PO ×2 (09:26→20:06)
[2017-11-20] MEDS: APIXABAN 5 MG TABLET PO ×2 (09:26→20:05)
[2017-11-20] MEDS: METHYLPREDNISOLONE 40 MG INJ IV ×3 (09:27→20:06)
[2017-11-20] MEDS: SALMETEROL/FLUTICASONE 250/50 INHA INH ×2 (09:27→20:05)
[2017-11-20] MEDS: FLUTICASONE 0.05% 16 GM NAS SPRAY NASAL ×2 (09:27→20:05)
[2017-11-20] MEDS: DIGOXIN 0.25 MG TAB PO (12:33)
[2017-11-20 14:43] LABS: AADO2 Arterial 63.6 mmHg (7.0-24.0); Allen Test ACCEPTAB; Arterial Base Excess 9.6 mmol/L (-3.0-3); Arterial Blood Gas Oxygen Sat 89.5 mmHG (95.0-98.0); Arterial COHb 0.6 % (0.0-3.0); Arterial Fraction of Oxyhgb 88.7 % (93.0-99.0); Arterial HCO3 38.9 mmol/L (22.0-26.0); Arterial MetHb 0.3 % (0.0-1.5); Arterial Total Hemglobin 14.2 g/dl (12.0-18.0); Arterial pCO2 76.1 mmhg (35-45); MODE NASAL CANNULA; Site Left Radial
[2017-11-20] MEDS: LEVOFLOXACIN 500MG/D5W (PMX) 100 ML IVPB (15:21)
[2017-11-20] MEDS: DOCUSATE SODIUM 100 MG CAP PO (23:10)
[2017-11-20] MEDS: POLYETHYLENE GLYCOL 17 GM PACKET PO (23:10)
[2017-11-21] MEDS: LEVALBUTEROL (NEB) 0.63 MG/3 ML AMP HHN ×4 (01:26→20:38)
[2017-11-21] MEDS: METHYLPREDNISOLONE 40 MG INJ IV ×4 (03:14→20:26)
[2017-11-21] MEDS: morphine 2 MG INJ IV ×3 (03:14→09:07)
[2017-11-21] MEDS: FUROSEMIDE 40 MG INJ IV ×2 (05:15→18:24)
[2017-11-21] MEDS: IPRATROPIUM (NEB) 0.5 MG/2.5 ML AMP HHN ×3 (07:50→20:37)
[2017-11-21] MEDS: FLUTICASONE 0.05% 16 GM NAS SPRAY NASAL ×2 (08:48→20:26)
[2017-11-21] MEDS: APIXABAN 5 MG TABLET PO ×2 (08:49→20:25)
[2017-11-21] MEDS: DOCUSATE SODIUM 100 MG CAP PO ×2 (08:49→20:27)
[2017-11-21] MEDS: SALMETEROL/FLUTICASONE 250/50 INHA INH (08:49)
[2017-11-21] MEDS: DILTIAZEM (CD) 120 MG CAP PO ×2 (08:50→20:26)
[2017-11-21 09:22] LABS: ADD MAN DIFF? NO
[2017-11-21 09:28] LABS: WHITE BLOOD COUNT 7.5 10^3/ul (4.8-10.8)
[2017-11-21 09:28] LABS: ABNORMAL IP MESSAGE 1; BASOPHILS % 0.1 % (0.0-2.0); HEMATOCRIT 43.8 % (42.0-52.0); HEMOGLOBIN 13.1 g/dl (14.0-18.0); LYMPHOCYTES # 0.4 10^3/ul (0.8-2.9); LYMPHOCYTES % 5.3 % (15.0-51.0); MEAN CORPUSCULAR HEMOGLOBIN 27.2 pg (29.0-33.0); MEAN CORPUSCULAR HGB CONC 29.9 g/dl (32.0-37.0); MEAN CORPUSCULAR VOLUME 90.9 fl (82.0-101.0); MEAN PLATELET VOLUME 9.6 fl (7.4-10.4); MONOCYTE # 0.2 10^3/ul (0.3-0.9); MONOCYTES % 2.3 % (0.0-11.0); NEUTROPHIL # 6.9 10^3/ul (1.6-7.5); NEUTROPHILS % 91.6 % (39.0-77.0); PLATELET COUNT 251 10^3/UL (140-415); POSITIVE DIFF @See below; RED BLOOD COUNT 4.82 10^6/ul (4.70-6.10); RED CELL DISTRIBUTION WIDTH 15.7 % (11.5-14.5)
[2017-11-21 09:35] LABS: HEMOGLOBIN A1C 6.7 % (0-5.9)
[2017-11-21 09:49] LABS: BLOOD UREA NITROGEN 23 mg/dl (7-20); CHLORIDE 88 mmol/L (97-110); CREATININE 0.86 mg/dl (0.61-1.24); GLUCOSE 211 mg/dl (70-220); MAGNESIUM 1.9 mg/dl (1.7-2.5); PHOSPHORUS 3.7 mg/dl (2.5-4.9); SODIUM 140 mmol/L (135-144)
[2017-11-21 10:57] LABS: ANION GAP 16 (8-16)
[2017-11-21 10:59] LABS: CARBON DIOXIDE 40 mmol/L (21-31)
[2017-11-21] MEDS: ARFORMOTEROL TARTRATE 15MCG/2 ML AMP NEB ×2 (11:30→20:37)
[2017-11-21] MEDS: DIGOXIN 0.25 MG TAB PO (13:00)
[2017-11-21] MEDS: LEVOFLOXACIN 500 MG TAB GTB (14:00)
[2017-11-21] MEDS: LIDOCAINE 5% PATCH TD (16:30)
[2017-11-21] MEDS: POLYETHYLENE GLYCOL 17 GM PACKET PO (20:27)
[2017-11-22] MEDS: LEVALBUTEROL (NEB) 0.63 MG/3 ML AMP HHN ×4 (01:36→19:39)
[2017-11-22] MEDS: METHYLPREDNISOLONE 40 MG INJ IV ×4 (02:13→21:08)
[2017-11-22] MEDS: FUROSEMIDE 40 MG INJ IV ×2 (05:02→17:46)
[2017-11-22] MEDS: LEVOFLOXACIN 500 MG TAB GTB (05:02)
[2017-11-22] MEDS: DOCUSATE SODIUM 100 MG CAP PO ×2 (08:47→20:58)
[2017-11-22] MEDS: DILTIAZEM (CD) 120 MG CAP PO ×2 (08:47→20:57)
[2017-11-22] MEDS: APIXABAN 5 MG TABLET PO ×2 (08:47→20:55)
[2017-11-22] MEDS: FLUTICASONE 0.05% 16 GM NAS SPRAY NASAL ×2 (09:33→20:58)
[2017-11-22] MEDS: LIDOCAINE 5% PATCH TD (09:33)
[2017-11-22 09:38] LABS: AADO2 Arterial 28.7 mmHg (7.0-24.0); Allen Test ACCEPTAB; Arterial Base Excess 14.8 mmol/L (-3.0-3); Arterial Blood Gas Oxygen Sat 89.6 mmHG (95.0-98.0); Arterial COHb 0.7 % (0.0-3.0); Arterial Fraction of Oxyhgb 88.7 % (93.0-99.0); Arterial HCO3 41.2 mmol/L (22.0-26.0); Arterial MetHb 0.3 % (0.0-1.5); Arterial pCO2 56.4 mmhg (35-45); MODE ROOM AIR; Site Left Radial
[2017-11-22] MEDS: IPRATROPIUM (NEB) 0.5 MG/2.5 ML AMP HHN ×3 (10:40→19:39)
[2017-11-22] MEDS: ARFORMOTEROL TARTRATE 15MCG/2 ML AMP NEB ×2 (10:40→19:39)
[2017-11-22] MEDS: DIGOXIN 0.25 MG TAB PO (13:12)
[2017-11-22] MEDS: POLYETHYLENE GLYCOL 17 GM PACKET PO (20:57)
[2017-11-23] MEDS: LEVALBUTEROL (NEB) 0.63 MG/3 ML AMP HHN ×4 (02:01→19:50)
[2017-11-23] MEDS: METHYLPREDNISOLONE 40 MG INJ IV ×3 (03:42→20:19)
[2017-11-23] MEDS: LEVOFLOXACIN 500 MG TAB GTB (06:23)
[2017-11-23] MEDS: FUROSEMIDE 40 MG INJ IV ×2 (06:25→17:08)
[2017-11-23] MEDS: APIXABAN 5 MG TABLET PO ×2 (08:56→20:22)
[2017-11-23] MEDS: DILTIAZEM (CD) 120 MG CAP PO ×2 (08:56→20:22)
[2017-11-23] MEDS: FLUTICASONE 0.05% 16 GM NAS SPRAY NASAL ×2 (08:56→20:19)
[2017-11-23] MEDS: DOCUSATE SODIUM 100 MG CAP PO ×2 (08:57→20:22)
[2017-11-23] MEDS: LIDOCAINE 5% PATCH TD (08:58)
[2017-11-23] MEDS: ARFORMOTEROL TARTRATE 15MCG/2 ML AMP NEB ×2 (09:00→19:50)
[2017-11-23] MEDS: IPRATROPIUM (NEB) 0.5 MG/2.5 ML AMP HHN ×3 (09:37→19:50)
[2017-11-23] MEDS: DIGOXIN 0.25 MG TAB PO (12:05)
[2017-11-23 12:06] LABS: NIL 0.03 IU/mL; QUANTIFERON(R)-TB GOLD NEGATIVE (NEGATIVE)
[2017-11-23] MEDS: POLYETHYLENE GLYCOL 17 GM PACKET PO (20:25)
[2017-11-24] MEDS: LEVALBUTEROL (NEB) 0.63 MG/3 ML AMP HHN ×4 (02:35→20:11)
[2017-11-24] MEDS: FUROSEMIDE 40 MG INJ IV ×2 (06:00→17:45)
[2017-11-24] MEDS: IPRATROPIUM (NEB) 0.5 MG/2.5 ML AMP HHN ×3 (07:42→20:11)
[2017-11-24] MEDS: ARFORMOTEROL TARTRATE 15MCG/2 ML AMP NEB ×2 (07:56→20:24)
[2017-11-24] MEDS: METHYLPREDNISOLONE 40 MG INJ IV ×2 (08:23→20:47)
[2017-11-24] MEDS: FLUTICASONE 0.05% 16 GM NAS SPRAY NASAL ×2 (08:24→20:47)
[2017-11-24] MEDS: APIXABAN 5 MG TABLET PO ×2 (08:24→20:47)
[2017-11-24] MEDS: DILTIAZEM (CD) 120 MG CAP PO ×2 (08:24→20:49)
[2017-11-24] MEDS: DOCUSATE SODIUM 100 MG CAP PO ×3 (08:25→21:00)
[2017-11-24] MEDS: LIDOCAINE 5% PATCH TD (08:25)
[2017-11-24] MEDS: DIGOXIN 0.25 MG TAB PO (12:19)
[2017-11-24] MEDS: POLYETHYLENE GLYCOL 17 GM PACKET PO (20:47)
[2017-11-25] MEDS: LEVALBUTEROL (NEB) 0.63 MG/3 ML AMP HHN ×2 (02:06→09:30)
[2017-11-25] MEDS: LIDOCAINE 5% PATCH TD (02:20)
[2017-11-25] MEDS: FUROSEMIDE 40 MG INJ IV (06:38)
[2017-11-25] MEDS: FLUTICASONE 0.05% 16 GM NAS SPRAY NASAL (08:36)
[2017-11-25] MEDS: DILTIAZEM (CD) 120 MG CAP PO (08:37)
[2017-11-25] MEDS: DOCUSATE SODIUM 100 MG CAP PO (08:38)
[2017-11-25] MEDS: APIXABAN 5 MG TABLET PO (08:38)
[2017-11-25] MEDS: METHYLPREDNISOLONE 40 MG INJ IV (08:38)
[2017-11-25] MEDS: IPRATROPIUM (NEB) 0.5 MG/2.5 ML AMP HHN (09:33)
== END 2017-11-25 11:16 | disposition home or self-care (01) | DRG 291 ==
LOC: TEL 17:37 → E/R 14:03 → TEL 11-18 02:51
DX: I50.33 Acute on chronic diastolic (congestive) heart failure (principal); J96.22 Acute and chronic respiratory failure with hypercapnia; J96.21 Acute and chronic respiratory failure with hypoxia; I27.81 Cor pulmonale (chronic); I48.1 Persistent atrial fibrillation; J44.1 Chronic obstructive pulmonary disease with (acute) exacerbation; Z68.41 Body mass index [BMI] 40.0-44.9, adult; E66.01 Morbid (severe) obesity due to excess calories; G47.33 Obstructive sleep apnea (adult) (pediatric); J32.9 Chronic sinusitis, unspecified; Z86.11 Personal history of tuberculosis; Z86.711 Personal history of pulmonary embolism; Z79.02 Long term (current) use of antithrombotics/antiplatelets
CPT/HCPCS: 36415; 36600; 71045; 71046; 80048; 80053; 80162; 82803; 83036; 83735; 83880; 84100; 84484; 85025; 86480; 93005; 94640; 94644; 94660; 94664; 96374; 96375; 99291-25

== ENCOUNTER 2017-11-29 12:59 | Inpatient (IN) | payer OTHER ==
[2017-11-29 14:37] LABS: AADO2 Arterial 27.1 mmHg (7.0-24.0); Allen Test ACCEPTAB; Arterial Base Excess 4.8 mmol/L (-3.0-3); Arterial Blood Gas Oxygen Sat 92.6 mmHG (95.0-98.0); Arterial COHb 3.7 % (0.0-3.0); Arterial HCO3 30.6 mmol/L (22.0-26.0); Arterial MetHb 0.2 % (0.0-1.5); Arterial Total Hemglobin 14.6 g/dl (12.0-18.0); Arterial pCO2 49.9 mmhg (35-45); MODE ROOM AIR; Site Right Radial
[2017-11-29 15:09] LABS: ADD MAN DIFF? NO
[2017-11-29 15:10] LABS: BASOPHILS % 0.2 % (0.0-2.0); EOSINOPHILS # 0.1 10^3/ul (0.0-0.5); EOSINOPHILS % 0.4 % (0.0-7.0); HEMATOCRIT 41.9 % (42.0-52.0); HEMOGLOBIN 13.1 g/dl (14.0-18.0); LYMPHOCYTES # 1.8 10^3/ul (0.8-2.9); LYMPHOCYTES % 14.4 % (15.0-51.0); MEAN CORPUSCULAR HEMOGLOBIN 27.8 pg (29.0-33.0); MEAN CORPUSCULAR HGB CONC 31.3 g/dl (32.0-37.0); MEAN CORPUSCULAR VOLUME 88.8 fl (82.0-101.0); MEAN PLATELET VOLUME 9.9 fl (7.4-10.4); MONOCYTE # 0.8 10^3/ul (0.3-0.9); MONOCYTES % 6.7 % (0.0-11.0); NEUTROPHIL # 9.5 10^3/ul (1.6-7.5); NEUTROPHILS % 76.5 % (39.0-77.0); PLATELET COUNT 221 10^3/UL (140-415); RED BLOOD COUNT 4.72 10^6/ul (4.70-6.10); RED CELL DISTRIBUTION WIDTH 16.3 % (11.5-14.5)
[2017-11-29 15:10] LABS: WHITE BLOOD COUNT 12.4 10^3/ul (4.8-10.8)
[2017-11-29 15:33] LABS: ALANINE AMINOTRANSFERASE 67 IU/L (13-69); ALBUMIN 3.7 g/dl (3.3-4.9); ALBUMIN/GLOBULIN RATIO 1.27; ALKALINE PHOSPHATASE 59 IU/L (42-121); ANION GAP 14 (8-16); ASPARTATE AMINO TRANSFERASE 27 IU/L (15-46); BILIRUBIN,INDIRECT 0.3 mg/dl (0-1.1); BILIRUBIN,TOTAL 0.3 mg/dl (0.2-1.3); BLOOD UREA NITROGEN 12 mg/dl (7-20); CALCIUM 8.5 mg/dl (8.4-10.2); CARBON DIOXIDE 29 mmol/L (21-31); CHLORIDE 101 mmol/L (97-110); CREATININE 0.71 mg/dl (0.61-1.24); GLUCOSE 130 mg/dl (70-220); POTASSIUM 4.3 mmol/L (3.5-5.1); SODIUM 140 mmol/L (135-144); TOTAL PROTEIN 6.6 g/dl (6.1-8.1)
[2017-11-29 15:43] LABS: B-TYPE NATRIURETIC PEPTIDE 1600 PG/ML (0-125)
[2017-11-29 15:44] LABS: INR 0.95; PROTIME 12.8 Sec (11.9-14.9)
[2017-11-29 15:45] LABS: PARTIAL THROMBOPLASTIN TIME 29.2 Sec (25.0-35.0)
[2017-11-29 15:49] LABS: TROPONIN-I < 0.012 ng/ml (0.00-0.12)
[2017-11-29 15:49] LABS: DIGOXIN < 0.4 ng/ml (1.0-2.0)
[2017-11-29] MEDS: DILTIAZEM 25 MG INJ IV (16:01)
[2017-11-29] MEDS: DIGOXIN 500 MCG INJ IV (16:58)
[2017-11-29] MEDS ORDERED: morphine 2 MG INJ IV (17:59)
[2017-11-29] MEDS ORDERED: ACETAMINOPHEN 325 MG TAB PO (18:00)
[2017-11-29] MEDS ORDERED: NACL 0.9% 3 ML SYG IV (18:00)
[2017-11-29] MEDS: ATENOLOL 25 MG TAB PO ×2 (18:44→18:46)
[2017-11-29] MEDS: APIXABAN 5 MG TABLET PO (18:44)
[2017-11-29] MEDS: FUROSEMIDE 20 MG TAB PO (18:48)
[2017-11-29] MEDS: SALMETEROL/FLUTICASONE 250/50 INHA INH (21:21)
[2017-11-29] MEDS: morphine 2 MG INJ IV (23:11)
[2017-11-30] MEDS: FUROSEMIDE 20 MG TAB PO ×2 (06:19→18:29)
[2017-11-30 07:30] LABS: ADD MAN DIFF? NO
[2017-11-30 08:19] LABS: BASOPHILS % 0.3 % (0.0-2.0); EOSINOPHILS # 0.1 10^3/ul (0.0-0.5); EOSINOPHILS % 0.9 % (0.0-7.0); HEMATOCRIT 44.7 % (42.0-52.0); HEMOGLOBIN 13.5 g/dl (14.0-18.0); LYMPHOCYTES # 1.9 10^3/ul (0.8-2.9); LYMPHOCYTES % 16.3 % (15.0-51.0); MEAN CORPUSCULAR HEMOGLOBIN 27.3 pg (29.0-33.0); MEAN CORPUSCULAR HGB CONC 30.2 g/dl (32.0-37.0); MEAN CORPUSCULAR VOLUME 90.3 fl (82.0-101.0); MONOCYTE # 0.8 10^3/ul (0.3-0.9); MONOCYTES % 6.9 % (0.0-11.0); NEUTROPHIL # 8.4 10^3/ul (1.6-7.5); NEUTROPHILS % 73.3 % (39.0-77.0); PLATELET COUNT 223 10^3/UL (140-415); RED BLOOD COUNT 4.95 10^6/ul (4.70-6.10); RED CELL DISTRIBUTION WIDTH 16.2 % (11.5-14.5)
[2017-11-30 08:19] LABS: WHITE BLOOD COUNT 11.4 10^3/ul (4.8-10.8)
[2017-11-30 08:27] LABS: ALANINE AMINOTRANSFERASE 70 IU/L (13-69); ALBUMIN/GLOBULIN RATIO 1.48; ALKALINE PHOSPHATASE 56 IU/L (42-121); ASPARTATE AMINO TRANSFERASE 33 IU/L (15-46); BILIRUBIN,INDIRECT 0.2 mg/dl (0-1.1); BILIRUBIN,TOTAL 0.2 mg/dl (0.2-1.3); BLOOD UREA NITROGEN 13 mg/dl (7-20); CALCIUM 9.1 mg/dl (8.4-10.2); CHLORIDE 96 mmol/L (97-110); CREATININE 0.74 mg/dl (0.61-1.24); GLUCOSE 141 mg/dl (70-220); POTASSIUM 5.1 mmol/L (3.5-5.1); SODIUM 144 mmol/L (135-144); TOTAL PROTEIN 6.7 g/dl (6.1-8.1)
[2017-11-30 08:31] LABS: ANION GAP 13 (8-16)
[2017-11-30 08:39] LABS: CARBON DIOXIDE 41 mmol/L (21-31)
[2017-11-30] MEDS: APIXABAN 5 MG TABLET PO ×2 (08:43→20:28)
[2017-11-30] MEDS: ATENOLOL 25 MG TAB PO (08:43)
[2017-11-30] MEDS: SALMETEROL/FLUTICASONE 250/50 INHA INH ×2 (08:45→21:00)
[2017-11-30] MEDS: DIGOXIN 0.25 MG TAB PO (13:30)
[2017-11-30] MEDS: morphine 2 MG INJ IV (20:30)
[2017-12-01] MEDS: morphine 2 MG INJ IV ×2 (02:08→09:06)
[2017-12-01] MEDS: FUROSEMIDE 20 MG TAB PO (05:30)
[2017-12-01] MEDS: ATENOLOL 25 MG TAB PO (09:05)
[2017-12-01] MEDS: SALMETEROL/FLUTICASONE 250/50 INHA INH (09:05)
[2017-12-01] MEDS: APIXABAN 5 MG TABLET PO (09:05)
[2017-12-01] MEDS: DIGOXIN 0.25 MG TAB PO (12:45)
[2017-12-01 16:21] LABS: ANION GAP 14 (8-16); BLOOD UREA NITROGEN 18 mg/dl (7-20); CALCIUM 9.2 mg/dl (8.4-10.2); CARBON DIOXIDE 39 mmol/L (21-31); CHLORIDE 93 mmol/L (97-110); CREATININE 0.69 mg/dl (0.61-1.24); GLUCOSE 98 mg/dl (70-220); SODIUM 142 mmol/L (135-144)
== END 2017-12-01 16:30 | disposition home or self-care (01) | DRG 308 ==
LOC: E/R 12:59 → TEL 16:42
DX: I48.91 Unspecified atrial fibrillation (principal); I50.33 Acute on chronic diastolic (congestive) heart failure; Z68.41 Body mass index [BMI] 40.0-44.9, adult; E66.01 Morbid (severe) obesity due to excess calories; M25.562 Pain in left knee; M25.561 Pain in right knee; D64.9 Anemia, unspecified
CPT/HCPCS: 36415; 36600; 71045; 80048; 80053; 80162; 82803; 83880; 84484; 85025; 85610; 85730; 87081; 93005; 94660; 96374; 96375; 99291-25

== ENCOUNTER 2017-12-15 14:24 | Inpatient (IN) | payer OTHER ==
[2017-12-15] MEDS: ALBUTEROL 0.5% (NEB) 2.5 MG/0.5 ML AMP INH (15:46)
[2017-12-15 16:13] LABS: ADD MAN DIFF? NO
[2017-12-15 16:16] LABS: BASOPHILS % 0.4 % (0.0-2.0); EOSINOPHILS # 0.2 10^3/ul (0.0-0.5); EOSINOPHILS % 3.3 % (0.0-7.0); HEMATOCRIT 40.3 % (42.0-52.0); HEMOGLOBIN 12.3 g/dl (14.0-18.0); LYMPHOCYTES # 1.2 10^3/ul (0.8-2.9); LYMPHOCYTES % 21.4 % (15.0-51.0); MEAN CORPUSCULAR HEMOGLOBIN 27.3 pg (29.0-33.0); MEAN CORPUSCULAR HGB CONC 30.5 g/dl (32.0-37.0); MEAN CORPUSCULAR VOLUME 89.4 fl (82.0-101.0); MEAN PLATELET VOLUME 9.7 fl (7.4-10.4); MONOCYTE # 0.6 10^3/ul (0.3-0.9); MONOCYTES % 11.5 % (0.0-11.0); NEUTROPHIL # 3.4 10^3/ul (1.6-7.5); NEUTROPHILS % 63.2 % (39.0-77.0); PLATELET COUNT 238 10^3/UL (140-415); RED BLOOD COUNT 4.51 10^6/ul (4.70-6.10); RED CELL DISTRIBUTION WIDTH 15.8 % (11.5-14.5)
[2017-12-15 16:16] LABS: WHITE BLOOD COUNT 5.4 10^3/ul (4.8-10.8)
[2017-12-15 16:48] LABS: ALANINE AMINOTRANSFERASE 35 IU/L (13-69); ALBUMIN/GLOBULIN RATIO 1.53; ALKALINE PHOSPHATASE 64 IU/L (42-121); ANION GAP 15 (8-16); ASPARTATE AMINO TRANSFERASE 23 IU/L (15-46); BILIRUBIN,INDIRECT 0.2 mg/dl (0-1.1); BILIRUBIN,TOTAL 0.2 mg/dl (0.2-1.3); BLOOD UREA NITROGEN 10 mg/dl (7-20); CALCIUM 8.7 mg/dl (8.4-10.2); CARBON DIOXIDE 33 mmol/L (21-31); CHLORIDE 98 mmol/L (97-110); CREATININE 0.83 mg/dl (0.61-1.24); GLUCOSE 90 mg/dl (70-220); POTASSIUM 3.9 mmol/L (3.5-5.1); SODIUM 142 mmol/L (135-144); TOTAL PROTEIN 6.6 g/dl (6.1-8.1)
[2017-12-15] MEDS: FUROSEMIDE 40 MG INJ IV (16:48)
[2017-12-15 16:58] LABS: B-TYPE NATRIURETIC PEPTIDE 1520 PG/ML (0-125)
[2017-12-15 16:59] LABS: TROPONIN-I < 0.012 ng/ml (0.00-0.12)
[2017-12-15] MEDS: ONDANSETRON 4 MG INJ IV (19:09)
[2017-12-15] MEDS: HYDROmorphONE 0.5 MG/0.5 ML SYG IV (19:09)
[2017-12-15] MEDS ORDERED: ACETAMINOPHEN 325 MG TAB PO ×2 (19:30→21:30)
[2017-12-15] MEDS ORDERED: ONDANSETRON 4 MG INJ IV (19:30)
[2017-12-15] MEDS ORDERED: ONDANSETRON 4 MG TAB PO (21:30)
[2017-12-15] MEDS ORDERED: NITROGLYCERIN (SL) 0.4 MG TAB SL (21:30)
[2017-12-15] MEDS ORDERED: NACL 0.9% 3 ML SYG IV (21:30)
[2017-12-16] MEDS: morphine 2 MG INJ IV (00:08)
[2017-12-16] MEDS: METOPROLOL 5 MG INJ IV (03:55)
[2017-12-16] MEDS ORDERED: LEVALBUTEROL (NEB) 0.63 MG/3 ML AMP HHN (04:00)
[2017-12-16 08:36] LABS: ADD MAN DIFF? NO
[2017-12-16 08:41] LABS: BASOPHILS % 0.6 % (0.0-2.0); EOSINOPHILS # 0.1 10^3/ul (0.0-0.5); EOSINOPHILS % 1.7 % (0.0-7.0); HEMATOCRIT 43.7 % (42.0-52.0); HEMOGLOBIN 13.1 g/dl (14.0-18.0); LYMPHOCYTES # 1.5 10^3/ul (0.8-2.9); LYMPHOCYTES % 22.7 % (15.0-51.0); MEAN CORPUSCULAR HEMOGLOBIN 27.2 pg (29.0-33.0); MEAN CORPUSCULAR VOLUME 90.7 fl (82.0-101.0); MEAN PLATELET VOLUME 9.7 fl (7.4-10.4); MONOCYTE # 0.7 10^3/ul (0.3-0.9); MONOCYTES % 10.2 % (0.0-11.0); NEUTROPHIL # 4.2 10^3/ul (1.6-7.5); NEUTROPHILS % 64.5 % (39.0-77.0); PLATELET COUNT 283 10^3/UL (140-415); RED BLOOD COUNT 4.82 10^6/ul (4.70-6.10); RED CELL DISTRIBUTION WIDTH 15.7 % (11.5-14.5)
[2017-12-16 08:41] LABS: WHITE BLOOD COUNT 6.5 10^3/ul (4.8-10.8)
[2017-12-16 08:59] LABS: ALANINE AMINOTRANSFERASE 35 IU/L (13-69); ALBUMIN 4.5 g/dl (3.3-4.9); ALBUMIN/GLOBULIN RATIO 1.66; ALKALINE PHOSPHATASE 73 IU/L (42-121); ANION GAP 15 (8-16); ASPARTATE AMINO TRANSFERASE 28 IU/L (15-46); BILIRUBIN,INDIRECT 0.1 mg/dl (0-1.1); BILIRUBIN,TOTAL 0.1 mg/dl (0.2-1.3); BLOOD UREA NITROGEN 15 mg/dl (7-20); CALCIUM 9.2 mg/dl (8.4-10.2); CARBON DIOXIDE 32 mmol/L (21-31); CHLORIDE 97 mmol/L (97-110); CREATININE 0.84 mg/dl (0.61-1.24); GLUCOSE 127 mg/dl (70-220); SODIUM 140 mmol/L (135-144); TOTAL PROTEIN 7.2 g/dl (6.1-8.1)
[2017-12-16] MEDS: ATENOLOL 25 MG TAB PO (08:59)
[2017-12-16 09:00] LABS: DIGOXIN 0.4 ng/ml (1.0-2.0)
[2017-12-16] MEDS: DIGOXIN 0.25 MG TAB PO (12:44)
[2017-12-16 14:07] LABS: AADO2 Arterial 22.5 mmHg (7.0-24.0); Allen Test ACCEPTAB; Arterial Base Excess 1.4 mmol/L (-3.0-3); Arterial COHb 1.6 % (0.0-3.0); Arterial Fraction of Oxyhgb 86.3 % (93.0-99.0); Arterial HCO3 29.1 mmol/L (22.0-26.0); Arterial MetHb 0.3 % (0.0-1.5); Arterial Total Hemglobin 14.8 g/dl (12.0-18.0); MODE ROOM AIR; Site Right Radial
[2017-12-16] MEDS: IPRATROPIUM (NEB) 0.5 MG/2.5 ML AMP HHN ×3 (14:10→22:00)
[2017-12-16] MEDS: LEVALBUTEROL (NEB) 0.63 MG/3 ML AMP HHN ×3 (14:10→22:00)
[2017-12-16] MEDS: IBUPROFEN 600 MG TAB PO (14:39)
[2017-12-17] MEDS: LEVALBUTEROL (NEB) 0.63 MG/3 ML AMP HHN ×6 (01:06→21:28)
[2017-12-17] MEDS: ATENOLOL 25 MG TAB PO (09:07)
[2017-12-17] MEDS: IBUPROFEN 600 MG TAB PO (09:13)
[2017-12-17] MEDS: IPRATROPIUM (NEB) 0.5 MG/2.5 ML AMP HHN ×4 (10:02→21:28)
[2017-12-17 10:39] LABS: AADO2 Arterial 171.4 mmHg (7.0-24.0); Allen Test ACCEPTAB; Arterial Base Excess 4.8 mmol/L (-3.0-3); Arterial Blood Gas Oxygen Sat 98.1 mmHG (95.0-98.0); Arterial COHb 0.9 % (0.0-3.0); Arterial Fraction of Oxyhgb 96.8 % (93.0-99.0); Arterial HCO3 34.3 mmol/L (22.0-26.0); Arterial MetHb 0.4 % (0.0-1.5); Arterial Total Hemglobin 13.7 g/dl (12.0-18.0); Arterial pCO2 76.4 mmhg (35-45); MODE NEB; Site Right Radial
[2017-12-17] MEDS: METHYLPREDNISOLONE 40 MG INJ IV ×3 (10:44→21:33)
[2017-12-17] MEDS: DIGOXIN 0.25 MG TAB PO ×2 (13:00→13:45)
[2017-12-17] MEDS: FUROSEMIDE 40 MG INJ IV ×2 (13:40→19:54)
[2017-12-17 15:15] LABS: B-TYPE NATRIURETIC PEPTIDE 1930 PG/ML (0-125)
[2017-12-17 17:16] LABS: AADO2 Arterial 58.1 mmHg (7.0-24.0); Allen Test ACCEPTAB; Arterial Blood Gas Oxygen Sat 95.6 mmHG (95.0-98.0); Arterial COHb 1.1 % (0.0-3.0); Arterial Fraction of Oxyhgb 94.2 % (93.0-99.0); Arterial HCO3 37.2 mmol/L (22.0-26.0); Arterial MetHb 0.4 % (0.0-1.5); Arterial Total Hemglobin 14.9 g/dl (12.0-18.0); Arterial pCO2 89.9 mmhg (35-45); Blood Gas IEPAP 18/9; Blood Gas PS 9; MODE MASK - BIPAP; Site Right Radial
[2017-12-17 22:53] LABS: AADO2 Arterial 99.5 mmHg (7.0-24.0); Allen Test ACCEPTAB; Arterial Base Excess 8.2 mmol/L (-3.0-3); Arterial Blood Gas Oxygen Sat 95.8 mmHG (95.0-98.0); Arterial COHb 0.9 % (0.0-3.0); Arterial Fraction of Oxyhgb 94.6 % (93.0-99.0); Arterial HCO3 35.6 mmol/L (22.0-26.0); Arterial MetHb 0.4 % (0.0-1.5); Arterial Total Hemglobin 14.1 g/dl (12.0-18.0); Blood Gas PS 9; MODE MASK - BIPAP; Site Right Radial
[2017-12-18] MEDS: LEVALBUTEROL (NEB) 0.63 MG/3 ML AMP HHN ×6 (01:38→20:22)
[2017-12-18 05:12] LABS: ADD MAN DIFF? NO
[2017-12-18 05:13] LABS: ABNORMAL IP MESSAGE 1; HEMATOCRIT 42.2 % (42.0-52.0); HEMOGLOBIN 12.5 g/dl (14.0-18.0); LYMPHOCYTES # 0.6 10^3/ul (0.8-2.9); LYMPHOCYTES % 10.7 % (15.0-51.0); MEAN CORPUSCULAR HEMOGLOBIN 27.1 pg (29.0-33.0); MEAN CORPUSCULAR HGB CONC 29.6 g/dl (32.0-37.0); MEAN CORPUSCULAR VOLUME 91.3 fl (82.0-101.0); MEAN PLATELET VOLUME 9.4 fl (7.4-10.4); MONOCYTE # 0.2 10^3/ul (0.3-0.9); MONOCYTES % 2.9 % (0.0-11.0); NEUTROPHIL # 4.5 10^3/ul (1.6-7.5); NEUTROPHILS % 86.2 % (39.0-77.0); PLATELET COUNT 259 10^3/UL (140-415); POSITIVE DIFF @See below; RED BLOOD COUNT 4.62 10^6/ul (4.70-6.10); RED CELL DISTRIBUTION WIDTH 14.6 % (11.5-14.5)
[2017-12-18 05:13] LABS: WHITE BLOOD COUNT 5.2 10^3/ul (4.8-10.8)
[2017-12-18 05:45] LABS: B-TYPE NATRIURETIC PEPTIDE 1890 PG/ML (0-125)
[2017-12-18 05:46] LABS: BLOOD UREA NITROGEN 17 mg/dl (7-20); CALCIUM 9.3 mg/dl (8.4-10.2); CHLORIDE 92 mmol/L (97-110); CREATININE 0.74 mg/dl (0.61-1.24); GLUCOSE 155 mg/dl (70-220); MAGNESIUM 1.7 mg/dl (1.7-2.5); PHOSPHORUS 4.5 mg/dl (2.5-4.9); POTASSIUM 4.1 mmol/L (3.5-5.1); SODIUM 142 mmol/L (135-144)
[2017-12-18] MEDS: FUROSEMIDE 40 MG INJ IV ×2 (06:11→17:52)
[2017-12-18] MEDS: METHYLPREDNISOLONE 40 MG INJ IV ×3 (06:11→20:47)
[2017-12-18 06:37] LABS: ANION GAP 13 (8-16)
[2017-12-18 06:40] LABS: CARBON DIOXIDE 41 mmol/L (21-31)
[2017-12-18] MEDS: ATENOLOL 25 MG TAB PO (08:44)
[2017-12-18] MEDS: IPRATROPIUM (NEB) 0.5 MG/2.5 ML AMP HHN ×4 (09:32→20:22)
[2017-12-18 11:32] LABS: AADO2 Arterial 227.9 mmHg (7.0-24.0); Allen Test ACCEPTAB; Arterial Base Excess 10.1 mmol/L (-3.0-3); Arterial Blood Gas Oxygen Sat 90.9 mmHG (95.0-98.0); Arterial Fraction of Oxyhgb 89.6 % (93.0-99.0); Arterial HCO3 37.4 mmol/L (22.0-26.0); Arterial MetHb 0.4 % (0.0-1.5); Arterial pCO2 62.1 mmhg (35-45); MODE HFNC; Site Right Radial
[2017-12-18] MEDS: DIGOXIN 0.25 MG TAB PO (12:38)
[2017-12-18] MEDS: RIVAROXABAN 20 MG TABLET PO (17:52)
[2017-12-19] MEDS: LEVALBUTEROL (NEB) 0.63 MG/3 ML AMP HHN ×4 (01:05→11:08)
[2017-12-19] MEDS: METHYLPREDNISOLONE 40 MG INJ IV ×2 (06:13→13:52)
[2017-12-19] MEDS: FUROSEMIDE 40 MG INJ IV (06:13)
[2017-12-19] MEDS: IPRATROPIUM (NEB) 0.5 MG/2.5 ML AMP HHN ×2 (07:45→11:08)
[2017-12-19] MEDS: ATENOLOL 25 MG TAB PO (09:56)
[2017-12-19 12:02] LABS: AADO2 Arterial 56.9 mmHg (7.0-24.0); Allen Test ACCEPTAB; Arterial Base Excess 11.3 mmol/L (-3.0-3); Arterial Blood Gas Oxygen Sat 91.4 mmHG (95.0-98.0); Arterial COHb 0.6 % (0.0-3.0); Arterial Fraction of Oxyhgb 90.5 % (93.0-99.0); Arterial HCO3 38.5 mmol/L (22.0-26.0); Arterial MetHb 0.4 % (0.0-1.5); Arterial Total Hemglobin 14.3 g/dl (12.0-18.0); Arterial pCO2 61.3 mmhg (35-45); MODE NASAL CANNULA; Site Right Radial
[2017-12-19] MEDS: DIGOXIN 0.25 MG TAB PO (13:52)
== END 2017-12-19 14:15 | disposition home or self-care (01) | DRG 291 ==
LOC: TEL 12-18 15:30 → E/R 14:24 → TEL 19:29 → ICU 12-17 12:03
PROC: 4A133R1 Monitoring of Arterial Saturation, Peripheral, Percutaneous Approach (ICD-10-PCS; 2017-12-16)
PROC: 5A09357 Assistance with Respiratory Ventilation, Less than 24 Consecutive Hours, Continuous Positive Airway Pressure (ICD-10-PCS; principal; 2017-12-17)
DX: I11.0 Hypertensive heart disease with heart failure (principal); J96.22 Acute and chronic respiratory failure with hypercapnia; J96.21 Acute and chronic respiratory failure with hypoxia; Z68.42 Body mass index [BMI] 45.0-49.9, adult; I50.33 Acute on chronic diastolic (congestive) heart failure; E66.01 Morbid (severe) obesity due to excess calories; J44.9 Chronic obstructive pulmonary disease, unspecified; I48.91 Unspecified atrial fibrillation; F17.210 Nicotine dependence, cigarettes, uncomplicated; G47.33 Obstructive sleep apnea (adult) (pediatric); I25.10 Atherosclerotic heart disease of native coronary artery without angina pectoris; Z88.0 Allergy status to penicillin; Z86.711 Personal history of pulmonary embolism; Z79.01 Long term (current) use of anticoagulants
CPT/HCPCS: 36415; 36600; 71045; 80048; 80053; 80162; 82803; 83735; 83880; 84100; 84484; 85025; 87081; 93005; 94640; 94644; 94660; 94664; 96374; 96375; 99285-25; G0378

== ENCOUNTER 2018-12-26 16:49 | Emergency (ER) | payer OTHER ==
[2018-12-26] MEDS: LEVALBUTEROL (NEB) 1.25 MG/0.5 ML AMP INH (18:13)
[2018-12-26] MEDS: IPRATROPIUM (NEB) 0.5 MG/2.5 ML AMP NEB (18:13)
[2018-12-26 18:25] LABS: ADD MAN DIFF? NO
[2018-12-26 18:30] LABS: WHITE BLOOD COUNT 8.8 10^3/ul (4.8-10.8)
[2018-12-26 18:30] LABS: BASOPHIL # 0.1 10^3/ul (0.0-0.1); BASOPHILS % 0.6 % (0.0-2.0); EOSINOPHILS # 0.2 10^3/ul (0.0-0.5); EOSINOPHILS % 1.8 % (0.0-7.0); HEMATOCRIT 44.6 % (42.0-52.0); HEMOGLOBIN 13.2 g/dl (14.0-18.0); LYMPHOCYTES # 1.1 10^3/ul (0.8-2.9); LYMPHOCYTES % 12.9 % (15.0-51.0); MEAN CORPUSCULAR HEMOGLOBIN 26.7 pg (29.0-33.0); MEAN CORPUSCULAR HGB CONC 29.6 g/dl (32.0-37.0); MEAN CORPUSCULAR VOLUME 90.3 fl (82.0-101.0); MEAN PLATELET VOLUME 9.1 fl (7.4-10.4); MONOCYTE # 0.8 10^3/ul (0.3-0.9); MONOCYTES % 8.8 % (0.0-11.0); NEUTROPHIL # 6.6 10^3/ul (1.6-7.5); NEUTROPHILS % 75.3 % (39.0-77.0); PLATELET COUNT 269 10^3/UL (140-415); RED BLOOD COUNT 4.94 10^6/ul (4.70-6.10); RED CELL DISTRIBUTION WIDTH 15.5 % (11.5-14.5)
[2018-12-26 18:44] LABS: INR 1.03; PROTIME 13.6 Sec (11.9-14.9); PT RATIO 1.1
[2018-12-26 18:45] LABS: PARTIAL THROMBOPLASTIN TIME 35.1 Sec (23.0-35.0)
[2018-12-26 18:55] LABS: BLOOD UREA NITROGEN 17 mg/dl (7-20); CALCIUM 8.9 mg/dl (8.4-10.2); CHLORIDE 96 mmol/L (97-110); CREATININE 0.97 mg/dl (0.61-1.24); Estimated GFR > 60 mL/min (>60); GLUCOSE 143 mg/dl (70-220); SODIUM 140 mmol/L (135-144)
[2018-12-26 19:02] LABS: ANION GAP 5 (5-13)
[2018-12-26 19:07] LABS: B-TYPE NATRIURETIC PEPTIDE 768 PG/ML (0-125); TROPONIN-I < 0.012 ng/ml (0.000-0.120)
[2018-12-26 19:21] LABS: CARBON DIOXIDE 39 mmol/L (21-31)
== END 2018-12-26 20:00 | disposition home or self-care (01) ==
LOC: E/R 16:49
DX: I50.9 Heart failure, unspecified (principal); D64.9 Anemia, unspecified; J44.9 Chronic obstructive pulmonary disease, unspecified; I10 Essential (primary) hypertension; Z79.01 Long term (current) use of anticoagulants; Z87.891 Personal history of nicotine dependence
CPT/HCPCS: 71045; 80048; 83880; 84484; 85025; 85610; 85730; 93005; 94640; 94664; 99285-25